=== PATIENT | female | born 1995 ===

== ENCOUNTER 2018-06-14 19:51 | Emergency (ER) | payer SELFPAY ==
[~2018-06-14] VITALS: Ht 152.4 cm; Wt 65.8 kg
[~2018-06-14 19:51] MED LIST: HYDR-1231 PO; SULF1TAB7 PO
[2018-06-14] MEDS ORDERED: NS IV 1000 ML 1,000 ML IV SCH ×2 (19:57→23:00)
[2018-06-14] MEDS ORDERED: ACETAMINOPHEN 500 MG TAB (TYLENOL) PO PRN (20:00)
--- OUTSIDE RECORDS SUMMARY | 2018-06-14 20:01 | XMS REPORT | Continuity of Care Document ---
Author Author [facility] Organization [facility] Address Unknown Phone Unavailable Allergies Active Description Code Type Severity Reaction Onset Reported/Identified Relationship to Patient Clinical Status Yes No Known Medication Allergies Drug N/A N/A Yes No Known Medication Allergies Drug N/A N/A Yes No Known Drug Allergies [id number] Drug Allergy Unknown N/A 06/09/2013 Medications Medication Packaging Start Date Stop Date Route Dosage Sig multivitamin, 2018 PO 0 / 1 multivitamin, 2018 PO Plus Iron oral tablet influenza virus vaccine, inactivated 04/27/2018 04/27/2018 IM Flucelvax PF Quadrivalent metoclopramide 06/01/2018 PO 10 mg / 1 tab Problems Date Dx Coded Attending Type Code Diagnosis Diagnosed By 01/03/2013 DEVEN MILAN, LIZ A V04.0 POLIO (IPV) DX 01/03/2013 DEVEN MILAN, LIZ A V05.3 HEP B (PED/ADOL 3 DOSE) DX 01/03/2013 DEVEN MILAN, LIZ A V06.1 TDAP DX 01/03/2013 DEVEN MILAN, LIZ A V06.8 PROQUAD (MMR/VARICELLA) DX 01/03/2013 DEVEN MILAN, LIZ A V04.0 POLIO (IPV) DX 01/03/2013 DEVEN MILAN, LIZ A V05.3 HEP B (PED/ADOL 3 DOSE) DX 01/03/2013 DEVEN MILAN, LIZ A V06.1 TDAP DX 01/03/2013 DEVEN MILAN, LIZ A V06.8 PROQUAD (MMR/VARICELLA) DX 01/03/2013 DEVEN MILNA, LIZ A V04.0 POLIO (IPV) DX 01/03/2013 DEVEN MILAN, LIZ A V05.3 HEP B (PED/ADOL 3 DOSE) DX 01/03/2013 ALVARADOE CENTRAL [facility] TECHNICIAN, LIZ A V06.1 TDAP DX 01/03/2013 ALVARADOE CENTRAL LAB TECHNICIAN, LIZ A V06.8 PROQUAD (MMR/VARICELLA) DX 01/03/2013 MARYOTTE CENTRAL LAB TECHNICIAN, LIZ A V04.0 POLIO (IPV) DX 01/03/2013 ALVARADOE CENTRAL LAB TECHNICIAN, LIZ A V05.3 HEP B (PED/ADOL 3 DOSE) DX 01/03/2013 MARYOTTE CENTRAL LAB TECHNICIAN, LIZ A V06.1 TDAP DX 01/03/2013 ALVARADOE CENTRAL LAB TECHNICIAN, LIZ A V06.8 PROQUAD (MMR/VARICELLA) DX 06/09/2013 MARTÍNEZ OLIVA, KASSANDRA Sampson Ot 599.0 URIN TRACT INFECTION NOS 06/09/2013 MARTÍNEZ OLIVA, KASSANDRA Sampson Ot 789.09 ABDOMINAL PAIN, OTHER SPECIFIED SITE 07/03/2013 ERMIAS OLIVA, KISHAN Gera Ot 789.04 ABDOMINAL PAIN, LEFT LOWER QUADRANT 11/07/2013 ALVARADOE CENTR[facility] TECHNICIAN, LIZ A V70.3 SPORTS PHYSICAL 11/07/2013 MARYOTTE CENTRAL LAB TECHNICIAN, LIZ A V70.3 SPORTS PHYSICAL 12/19/2013 MARYOTTE CENTRAL LAB TECHNICIAN, LIZ A 381.81 EUSTACHIAN TUBE DYSFUNCTION 12/19/2013 ALVARADOE CENTRAL LAB TECHNICIAN, LIZ A 786.2 COUGH 04/27/2018 Francine Ro Final Z11.3 Encounter for screening for infections with a predominantly 04/27/2018 Francine Ro Final Z34.91 Encounter for supervision of normal , unspecified, 06/05/2018 Fei Ballesteros Final F32.9 Major depressive disorder, single episode, unspecified 06/05/2018 Fei Ballesteros Final N13.2 Hydronephrosis with renal and ureteral calculous obstruction 06/05/2018 Fei Ballesteros Final N20.1 Calculus of ureter 06/05/2018 Fei Ballesteros Final O26.832 related renal disease, second trimester 06/05/2018 Fei Ballesteros Final O99.341 Other mental disorders complicating , first trimest 06/05/2018 Fei Ballesteros Final Z3A.13 13 weeks gestation of 06/12/2018 Fei Ballesteros Final N13.6 Pyonephrosis 06/12/2018 Fei Ballesteros Final N20.1 Calculus of ureter 06/12/2018 Fei Ballesteros Final O26.831 related renal disease, first trimester Procedures Code Description [place] [address] VISUAL ACUITY SCREEN 11/07/2013 80197 THERAPUTIC INJ SQ/IM 12/19/2013 J1040 DEPO MEDROL 80 MG INJ 12/19/2013 57756 Cystourethroscopy, with insertion of ind CLEMENTE TAYLOR 06/05/2018 68117 Cystourethroscopy, with ureteroscopy and CLEMENTE TAYLOR 06/12/2018 Results Test Result Range hCG,Beta Subunit,Qual,Serum - 12/26/15 16:44 hCG,Beta Subunit,Qual,Serum Negative mIU/mL Negative <6 Encounters ACCT No. Visit Date/Time Discharge Status Pt. Type Provider Facility Loc./Unit Complaint [id number] 07/03/2013 01:35:00 07/03/2013 02:32:00 DIS Emergency ERMIAS OLIVA, KISHAN Boss [facility] ER ABD PAIN [id number] 06/09/2013 10:43:00 06/09/2013 12:18:00 DIS Emergency MARTÍNEZ OLIVA, KASSANDRA Sampson [facility] ER ABDOMINAL PAIN [id number] 06/09/2018 08:38:10 06/09/2018 23:59:59 DIS Outpatient Fei Ballester[facility] recheck per Dr Ballesteros Told to come at 8:30 and may need to wait [id number] 06/05/2018 16:50:00 06/05/2018 23:59:59 DIS Outpatient [facility] [id number] 06/01/2018 12:44:47 06/01/2018 23:59:59 DIS Outpatient Francine Ro [facility] ob check [id number] 04/28/2018 00:00:00 04/28/2018 23:59:59 DIS Outpatient Scanned Documents [id number] 04/27/2018 08:58:04 04/27/2018 23:59:59 DIS Outpatient Francine Ro [facility] BAKER [id number] 06/14/2018 14:56:00 ACT Outpatient Rene [facility] [id number] 06/14/2018 09:14:00 ACT Outpatient [facility] [id number] 06/14/2018 08:45:00 ACT Outpatient [facility] [id number] 12/19/2013 14:06:00 12/19/2013 23:59:59 CLS Outpatient DEVEN ALEGREFransisco LIZ A [id number] 11/07/2013 11:33:00 11/07/2013 23:59:59 CLS Outpatient DEVEN ALEGREFransisco LIZ A [id number] 07/25/2013 11:24:00 07/25/2013 23:59:59 CLS Outpatient DEVEN ALEGRELIZ Moody [id number] 01/03/2013 13:21:00 01/03/2013 23:59:59 CLS Outpatient DEVEN ALEGREFransisco LIZ A [id number] 12/27/2015 08:07:00 Document Registration [id number] 06/12/2018 13:11:00 06/12/2018 23:59:00 DIS Outpatient [facility], [facility] JACKIE CYSTO W/HOLMIUM LSAER LT [id number] 06/05/2018 09:54:00 06/05/2018 23:59:00 DIS Outpatient [facility], [facility] JACKIE STONE [id number] 04/27/2018 15:59:00 04/27/2018 23:59:00 DIS Outpatient Francine Ro [facility] [id number] 06/14/2018 11:28:00 ACT Outpatient keren [facility] LAB LAB WORK
--- OUTSIDE RECORDS SUMMARY | 2018-06-14 20:01 | XMS REPORT ---
Author Author Jose Roberto Gaines Organization [facility] Address [address] [place] [address] [address] [place] [address] Care Team Providers Care Marker Delivery Name Role Phone Jose Roberto Gaines Unavailable PROBLEMS Type Condition ICD9-CM Code [id number] Code Onset Dates Condition Status SNOMED Code Problem Constipation, unspecified constipation type K59.00 Active [id number] ALLERGIES No Known Allergies ENCOUNTERS Encounter Location Date Diagnosis [address], [address] [id number] [place], [place] [id number] Feb, [address], [address] [id number] [place], [place] [id number] Feb, Constipation, unspecified constipation type K59.00 IMMUNIZATIONS No Known Immunizations SOCIAL HISTORY Never Assessed REASON FOR VISIT STOMACH PAIN x 2 WEEKS, ABNORMAL STOOL PLAN OF CARE Activity Details Follow Up prn Reason: VITAL SIGNS Temperature 98.2 degrees Fahrenheit 2018-02-20 Heart Rate 76 /min 2018-02-20 Height 63 in 2018-02-20 Weight 150.8 lbs 2018-02-20 BMI 26.71 kg/m2 2018-02-20 Respiratory Rate 14 /min 2018-02-20 Oximetry 95 % 2018-02-20 Blood pressure systolic 106 mm Hg 2018-02-20 Blood pressure diastolic 72 mm Hg 2018-02-20 MEDICATIONS Unknown Medications RESULTS No Results PROCEDURES No Known procedures INSTRUCTIONS MEDICATIONS ADMINISTERED No Known Medications MEDICAL (GENERAL) HISTORY Type Description Date Surgical History APPENDECTOMY Surgical History TONSILLECTOMY
--- NOTE | 2018-06-14 20:15 | ED General ---
General Stated Complaint: 15 WEEKS PREG,FEVER Source of Information: Patient Exam Limitations: No Limitations History of Present Illness Date Seen by Provider: Jun 14, 2018 Time Seen by Provider: 19:54 Initial Comments Here with report of left flank pain, fever 204, tachycardia and concerns of UTI with pyelonephritis from the clinic. She had lithotripsy recently for kidney stones on the left. Case is complicated by the fact that she is 15 weeks but family does not know when she does not want them to know. She was seen at [facility] and had initial evaluation done. Influenza screen is negative. They did initiate IV and give 1 L of fluid which dropped her heart rate from 160s to 120s. She did take Tylenol 500 mg at 1800. Fever apparently was read deducing but now has increased again to 101. Her rate has increased to 140s. Does have some cough and feels a little short of breath but not dyspneic. She is not wheezing. Denies nausea or vomiting. Has not had bowel movement for 3 days. Timing/Duration: 24 Hours Severity: Moderate Associated Systoms: No Chest Pain; Cough, Fever/Chills; No Nausea/Vomiting; Shortness of Air, Weakness Allergies and Home Medications Allergies Coded Allergies: No Known Drug Allergies (Unverified , 06/09/13) Home Medications Hydrocodone Bit/Acetaminophen 1 Tab Tablet, 1-2 TAB PO Q6H PRN for PAIN Prescribed by: KISHAN MONSON on 07/03/13 0224 Patient Home Medication List Home Medication List Reviewed: Yes Review of Systems Review of Systems Constitutional: see HPI, chills, fever, weakness EENTM: nose congestion; No throat pain Respiratory: cough, short of breath Cardiovascular: No chest pain, No edema; palpitations Gastrointestinal: abdominal pain; No nausea, No vomiting Genitourinary: No dysuria; pain : Yes Musculoskeletal: back pain; No muscle pain Skin: no symptoms reported Psychiatric/Neurological: No Symptoms Reported All Other Systems Reviewed Negative Unless Noted: Yes Past Yefibjo-Hmbjar-Bqvemz Hx Past Med/Social Hx: Reviewed Nursing Past Med/Soc Hx Patient Social History Alcohol Use: Denies Use Recreational Drug Use: No Smoking Status: Never a Smoker Recent Foreign Travel: No Contact w/Someone Who Travel: No Seasonal Allergies Seasonal Allergies: No (that she had a surgeries) Past Medical History Surgeries: Yes (lithotripsy) Appendectomy, Tonsillectomy Respiratory: No Cardiac: No Neurological: No : Yes Last Menstrual Period: Feb 27, 2018 Reproductive Disorders: No Sexually Transmitted Disease: No Gastrointestinal: No Musculoskeletal: No Endocrine: No Cancer: No Psychosocial: No Family Medical History Reviewed Nursing Family Hx Physical Exam-Suspected Sepsis Physical Exam Vital Signs Vital Signs - First Documented 06/14/18 06/15/18 20:00 00:17 Temp 101.0 Pulse 144 Resp 22 B/P (MAP) 111/67 (82) Pulse Ox 100 O2 Delivery Room Air Capillary Refill : Height, Weight, BMI Height: 5'5" Weight: 130lbs. oz. 58.845633rh; 21.63 BMI Method:Stated General Appearance: WD/WN, Mild Distress HEENT: PERRL/EOMI, Pharyngeal Erythema, Other (bilateral nasal congestion) Neck: Non Tender, Supple Respiratory: Lungs Clear, Normal Breath Sounds Cardiovascular: No Murmur, Tachycardia Gastrointestinal: Soft, Tenderness (left lateral and flank) Back: No Vertebral Tenderness, CVA Tenderness (L); No CVA Tenderness (R) Extremity: Normal Range of Motion, Non Tender, No Calf Tenderness Neurologic/Psychiatric: Alert, Oriented x3, No Motor/Sensory Deficits Skin: normal color, warm/dry Focused Exam Lactate Level 06/14/18 20:05: Lactic Acid Level 2.09*H 06/14/18 22:25: Lactic Acid Level 1.06 Lactic Acid Level Progress/Results/Core Measures Suspected Sepsis SIRS Temperature: Pulse: Respiratory Rate: Laboratory Tests 06/14/18 20:05: White Blood Count 22.5H Blood Pressure / Mean: 06/14/18 20:05: Lactic Acid Level 2.09*H 06/14/18 22:25: Lactic Acid Level 1.06 Laboratory Tests 06/14/18 20:05: Creatinine 0.76, INR Comment 1.1, Platelet Count 252, Total Bilirubin 1.3H Results/Orders Lab Results Laboratory Tests Test 06/14/18 20:05 06/14/18 20:15 06/14/18 22:25 Range/Units White Blood Count 22.5 H 4.3-11.0 10^3/uL Red Blood Count 4.08 L 4.35-5.85 10^6/uL Hemoglobin 12.1 11.5-16.0 G/DL Hematocrit 34 L 35-52 % Mean Corpuscular Volume 82 80-99 FL Mean Corpuscular Hemoglobin 30 25-34 PG Mean Corpuscular Hemoglobin Concent 36 32-36 G/DL Red Cell Distribution Width 12.6 10.0-14.5 % Platelet Count 252 130-400 10^3/uL Mean Platelet Volume 10.5 H 7.4-10.4 FL Neutrophils (%) (Auto) 95 H 42-75 % Lymphocytes (%) (Auto) 3 L 12-44 % Monocytes (%) (Auto) 2 0-12 % Eosinophils (%) (Auto) 0 0-10 % Basophils (%) (Auto) 0 0-10 % Neutrophils # (Auto) 21.3 H 1.8-7.8 X 10^3 Lymphocytes # (Auto) 0.8 L 1.0-4.0 X 10^3 Monocytes # (Auto) 0.4 0.0-1.0 X 10^3 Eosinophils # (Auto) 0.0 0.0-0.3 10^3/uL Basophils # (Auto) 0.0 0.0-0.1 10^3/uL Neutrophils % (Manual) 93 % Lymphocytes % (Manual) 2 % Monocytes % (Manual) 1 % Eosinophils % (Manual) 0 % Basophils % (Manual) 0 % Band Neutrophils 4 % Blood Morphology Comment NORMAL Prothrombin Time 14.2 12.2-14.7 SEC INR Comment 1.1 0.8-1.4 Activated Partial Thromboplast Time 26 24-35 SEC Sodium Level 133 L 135-145 MMOL/L Potassium Level 3.9 3.6-5.0 MMOL/L Chloride Level 104 98-107 MMOL/L Carbon Dioxide Level 18 L 21-32 MMOL/L Anion Gap 11 5-14 MMOL/L Blood Urea Nitrogen 5 L 7-18 MG/DL Creatinine 0.76 0.60-1.30 MG/DL Estimat Glomerular Filtration Rate > 60 BUN/Creatinine Ratio 7 Glucose Level 97 70-105 MG/DL Lactic Acid Level 2.09 *H 1.06 0.50-2.00 MMOL/L Calcium Level 9.1 8.5-10.1 MG/DL Corrected Calcium 9.4 8.5-10.1 MG/DL Total Bilirubin 1.3 H 0.1-1.0 MG/DL Aspartate Amino Transf (AST/SGOT) 32 5-34 U/L Alanine Aminotransferase (ALT/SGPT) 49 0-55 U/L Alkaline Phosphatase 76 40-136 U/L Total Protein 6.9 6.4-8.2 GM/DL Albumin 3.6 3.2-4.5 GM/DL Urine Color YELLOW Urine Clarity CLEAR Urine pH 8 5-9 Urine Specific [place] 1.010 L 1.016-1.022 Urine Protein NEGATIVE NEGATIVE Urine Glucose (UA) NEGATIVE NEGATIVE Urine Ketones NEGATIVE NEGATIVE Urine Nitrite NEGATIVE NEGATIVE Urine Bilirubin NEGATIVE NEGATIVE Urine Urobilinogen NORMAL NORMAL MG/DL Urine Leukocyte Esterase 3+ H NEGATIVE Urine RBC (Auto) 2+ H NEGATIVE Urine RBC RARE /HPF Urine WBC 10-25 H /HPF Urine Squamous Epithelial Cells 10-25 H /HPF Urine Crystals NONE /LPF Urine Bacteria FEW H /HPF Urine Casts NONE /LPF Urine Mucus NEGATIVE /LPF Urine Culture Indicated NO Micro Results Microbiology 06/14/18 Blood Culture - Preliminary, Resulted No growth 06/14/18 Blood Culture - Preliminary, Resulted No growth 06/14/18 Urine Culture - Preliminary, Resulted Enterococcus faecalis My Orders Orders - KASSANDRA SOLIZ MD Cbc With Automated Diff (06/14/18 19:57) Comprehensive Metabolic Panel (06/14/18 19:57) Blood Culture (06/14/18 19:57) Urinalysis (06/14/18 19:57) Urine Culture (06/14/18 19:57) Protime With Inr (06/14/18 19:57) Partial Thromboplastin Time (06/14/18 19:57) Chest 1 View, Ap/Pa Only (06/14/18 19:57) Acetaminophen Tablet (Tylenol Tablet) (06/14/18 20:00) Vital Signs Adult Sepsis Patie Q15M (06/14/18 19:57) O2 (06/14/18 19:57) Remove Rings In Anticipation O (06/14/18 19:57) Lactic Acid Analyzer (06/14/18 19:57) Ns Iv 1000 Ml (Sodium Chloride 0.9%) (06/14/18 19:57) Manual Differential (06/14/18 20:05) Ceftriaxone For Iv Use (Rocephin For I (06/14/18 21:00) Ns Iv 1000 Ml (Sodium Chloride 0.9%) (06/14/18 20:47) Ibuprofen Tablet (Motrin Tablet) (06/14/18 21:29) Ns Iv 1000 Ml (Sodium Chloride 0.9%) (06/14/18 23:00) Lactated Ringers (Lr 1000 Ml Iv Solution (06/14/18 23:23) Ns (Ivpb) (Sodium Chloride 0.9%) (06/14/18 23:44) Norepinephrine (Levophed) (06/14/18 23:44) Chest 1 View, Ap/Pa Only (06/15/18 00:05) Medications Given in ED Vital Signs/I&O Capillary Refill : Progress Note : Progress Note Seen and evaluated. Sepsis workup initiated. Concerns for pyelonephritis after lithotripsy. Chest x-ray ordered given patient's shortness of breath. Normal saline 1 L bolus ordered and this will be her second liter of normal saline as she had one liter at the clinic. Blood cultures and lactic acid ordered. Acetaminophen 500 mg by mouth given. Monitor patient. 2030: Bedside ultrasound shows intrauterine with fetus of approximately 15-1/7 by femur length and heart rate 175-180. 2047: Repeat normal saline 1 L bolus for continued blood pressure that is near her below 90 systolic. This will exceeded 30 mL/kg bolus for sepsis. Lactic acid is elevated greater than 2. Rocephin 1 g IV ordered. 2126: Temperature is increasing currently. I did discuss the case with our OB on-call. She is right at second trimester now. Given her persistent fever , we will initiate ibuprofen 600 mg by mouth 1. Blood pressure 89-91 systolic with map less than 65. Patient will require central line and advanced care. I did discuss the case with Dr. Coto. Due to the complexity of the case including neurological issues, sepsis, OB patient and probable urinary tract infection requiring manager highway and urology, patient will need to be transferred. Close the Center capable of managing this type of patient would be [facility]. 2157: I have made contact with transfer line and impending call back from on- call accepting physician. Patient will need to go by EMS. Case is also comforted by the fact that patient is and her family does not know. At this point she has not told them. I have talked with her about my concerns and the need for transfer as well as the need to probably let her family know about what is going on so they understand the reason for transfer. She will make a decision on that but at this point the family still does not know. CT scan considered but I will discuss this with the on-call accepting physician. 2320: Patient will be transferred. Blood pressure 90s systolic or less in the central line. Total critical patients in the emergency department at this time. I have asked Dr. Shi to come in for central line placement due to the need for pressors. He will come in. I did speak with the transfer line and Dr. Nova has accepted the patient in transfer. She will go by helicopter due to critical condition, need for pressors and . 2345: Dr. Shi placing central line and helicopter in route as patient has been accepted to . Anticipate initiating Levophed. 0005: Pulse chest x-ray ordered and completed. Levophed initiated. Helicopter crew here for transport. Report given. They will continue Levophed in route. Diagnostic Imaging Diagonstic Imaging: Xray Plain Films/CT/US/NM/MRI: chest Comments [facility] [place] NAME: MARIBELL MARTINEZ [facility] REC#: [id number] PT STATUS: REG ER : 1995 PHYSICIAN: KASSANDRA SOLIZ MD ADMIT DATE: 06/14/18/ER Draft Date of Exam:06/14/18 CHEST 1 VIEW, AP/PA ONLY INDICATION: Febrile. FINDINGS: Portable exam. The lungs are well-aerated. There are no acute infiltrates. Heart is not enlarged. No pulmonary edema. No pneumothorax or pleural effusion. No bony abnormalities. IMPRESSION: Normal portable chest Dictated on workstation # [id number] Dict: 06/14/182053 Trans: 06/14/182056 [facility] [id number] Interpreted by: LUIS WAGNER MD Electronically signed by: Diagonstic Imaging: Xray Plain Films/CT/US/NM/MRI: chest Comments NAME: MARIBELL MARTINEZ MED REC#: [id number] PT STATUS: DEP ER : 1995 PHYSICIAN: KASSANDRA SOLIZ MD ADMIT DATE: 06/14/18/ER Signed Date of Exam: 06/15/18 CHEST 1 VIEW, AP/PA ONLY INDICATION: Central venous catheter evaluation. FINDINGS: Portable upright AP view of the chest is obtained. Since study of one day earlier, there has been placement of left subclavian central venous catheter with tip projecting over the mid superior vena cava. There is no pneumothorax. No consolidation or significant pleural fluid is seen. IMPRESSION: No evidence of acute abnormality. Dictated by: Dictated on workstation # [id number] Dict: 06/15/18 0715 Trans: 06/15/18 1204 Interpreted by: DEON ISIDRO MD Electronically signed by: DEON ISIDRO MD 06/15/18 1204 Departure Impression Primary Impression: Qualified Codes: Z3A.15 - 15 weeks gestation of Additional Impressions: Sepsis Qualified Codes: A41.9 - Sepsis, unspecified organism Urinary tract infection Qualified Codes: N30.00 - Acute cystitis without hematuria Left sided abdominal pain Disposition: XF SHT-TRM HOSP Condition: Stable Transfer Time Spoke to Accepting Phy: 23:20 Transfer Time: 23:20 Transfer Facility: [place], [place], Dr. Nova accepting Method of Transfer: Air Departure-Patient Inst. Referrals: NO,LOCAL PHYSICIAN (PCP/Family) Primary Care Physician KASSANDRA SOLIZ MD Jun 14, 2018 20:15
[2018-06-14 20:25] LABS: BASOPHILS % (AUTO) 0 % (0-10); EOSINOPHILS % (AUTO) 0 % (0-10); HEMATOCRIT 34 % (35-52); HEMOGLOBIN 12.1 G/DL (11.5-16.0); LYMPHOCYTES # (AUTO) 0.8 X 10^3 (1.0-4.0); LYMPHOCYTES % (AUTO) 3 % (12-44); MEAN CORPUSCULAR HEMOGLOBIN 30 PG (25-34); MEAN CORPUSCULAR HGB CONC 36 G/DL (32-36); MEAN CORPUSCULAR VOLUME 82 FL (80-99); MEAN PLATELET VOLUME 10.5 FL (7.4-10.4); MONOCYTES # (AUTO) 0.4 X 10^3 (0.0-1.0); MONOCYTES % (AUTO) 2 % (0-12); NEUTROPHILS # (AUTO) 21.3 X 10^3 (1.8-7.8); NEUTROPHILS % (AUTO) 95 % (42-75); PLATELET COUNT 252 10^3/uL (130-400); RED CELL DISTRIBUTION WIDTH 12.6 % (10.0-14.5); WHITE BLOOD COUNT 22.5 10^3/uL (4.3-11.0)
[2018-06-14 20:28] LABS: BILIRUBIN,URINE NEGATIVE (NEGATIVE); CLARITY,URINE CLEAR; COLOR,URINE YELLOW; GLUCOSE, URINE (UA) NEGATIVE (NEGATIVE); KETONES,URINE NEGATIVE (NEGATIVE); LEUKOCYTE ESTERASE ,URINE 3+ (NEGATIVE); NITRITE,URINE NEGATIVE (NEGATIVE); PH,URINE 8 (5-9); PROTEIN,URINE NEGATIVE (NEGATIVE); UROBILINOGEN,URINE NORMAL (NORMAL)
[2018-06-14 20:32] LABS: INR 1.1 (0.8-1.4); PROTHROMBIN TIME PATIENT 14.2 SEC (12.2-14.7)
[2018-06-14 20:36] LABS: BACTERIA,URINE FEW /HPF; RBC,URINE RARE /HPF
[2018-06-14 20:39] LABS: ALANINE AMINOTRANSFERASE 49 U/L (0-55); ALBUMIN 3.6 GM/DL (3.2-4.5); ALKALINE PHOSPHATASE 76 U/L (40-136); BILIRUBIN,TOTAL 1.3 MG/DL (0.1-1.0); BUN/CREATININE RATIO 7; CALCIUM 9.1 MG/DL (8.5-10.1); CARBON DIOXIDE 18 MMOL/L (21-32); CHLORIDE 104 MMOL/L (98-107); CREATININE SERUM 0.76 MG/DL (0.60-1.30); GFR ESTIMATED > 60; GLUCOSE 97 MG/DL (70-105); POTASSIUM 3.9 MMOL/L (3.6-5.0); SODIUM 133 MMOL/L (135-145); TOTAL PROTEIN 6.9 GM/DL (6.4-8.2)
[2018-06-14] MEDS ORDERED: NS IV 1000 ML 1,000 ML IV STA (20:47)
--- NOTE | 2018-06-14 20:53 | NUR ---
US PER DR. SOLIZ AT BEDSIDE. MEASURING 15 WEEKS AND 1 DAY, FHT 180.
[2018-06-14 20:55] LABS: BAND NEUTROPHILS 4 %; BASOPHILS % (MANUAL) 0 %; EOSINOPHILS % (MANUAL) 0 %; LYMPHOCYTES % (MANUAL) 2 %; MONOCYTES % (MANUAL) 1 %; NEUTROPHILS % (MANUAL) 93 %; RBC MORPH NORMAL
--- NOTE | 2018-06-14 20:58 | Diagnostic Imaging Report ---
INDICATION: Febrile. FINDINGS: Portable exam. The lungs are well-aerated. There are no acute infiltrates. Heart is not enlarged. No pulmonary edema. No pneumothorax or pleural effusion. No bony abnormalities. IMPRESSION: Normal portable chest Dictated by: Dictated on workstation # [id number]
[2018-06-14] MEDS ORDERED: cefTRIAXone FOR IV USE 1,000 MG in WATER (STERILE) FOR INJECTION 10 ML IV ONE (21:00)
[2018-06-14] MEDS ORDERED: IBUPROFEN TABLET 200 MG TAB PO STA (21:29)
[2018-06-14] MEDS ORDERED: LACTATED RINGERS 1,000 ML IV ONE (23:23)
[2018-06-14] MEDS ORDERED: NS (IVPB) 250 ML ONE (23:44)
[2018-06-14] MEDS ORDERED: NOREPINEPHRINE 4 MG/4 ML (LEVOPHED) AMP IV ONE (23:44)
--- NOTE | 2018-06-14 23:45 | NUR ---
DR. ASTUDILLO HERE TO PLACE CENTRAL LINE FOR HYPOTENSION. SEE VITAL SIGN SHEETS FOR FUTHER BP DETAILS.
[2018-06-15 00:17] VITALS: BP 83/39
--- NOTE | 2018-06-15 02:44 | CONSULTATION REPORT ---
DATE OF SERVICE: 06/14/2018 HISTORY OF PRESENT ILLNESS: The patient is a 22-year-old female who presented with fever, chills as well as weakness. 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 She states that she developed fever, chills and then felt weak. She was found to have a urinary tract infection. She was also found to be hypotensive and tachycardic consistent with urosepsis. She will require IV fluid hydration as well as vasopressors. She is also 16 weeks' gestation and will require transfer to a high risk obstetric center. PAST MEDICAL HISTORY: Nephrolithiasis. PAST SURGICAL HISTORY: Appendectomy, tonsillectomy. ALLERGIES: No known drug allergies. MEDICATIONS: None. SOCIAL HISTORY: Negative smoke, negative alcohol. FAMILY HISTORY: Noncontributory. VITAL SIGNS: Relatively stable. Her systolic blood pressure ranges from the 60s to 80s, heart rate in the 120s to 130s. REVIEW OF SYSTEMS: Well-nourished female, who is awake and alert; however, feels weak and does answer all questions appropriately. She is not experiencing any shortness of breath or difficulty breathing. No chest pain, palpitations, diaphoresis. No nausea, vomiting. No diarrhea or constipation. Fever, chills as well as weakness for the past two days. No recent inadvertent weight loss. All other review of systems negative. PHYSICAL EXAMINATION: CHEST: Clear. Good breath sounds bilaterally. HEART: Regular, no murmurs. HEENT: No scleral icterus. NECK: No cervical lymphadenopathy. EXTREMITIES: No lower extremity edema, negative Homans sign. ABDOMEN: Soft, nontender, nondistended. SKIN: Slightly cool and clammy. ASSESSMENT AND PLAN: A 22-year-old female with urosepsis secondary to lithotripsy and cystoscopy and stone removal with urosepsis as well as a G1, P0 at 18 weeks' gestation. She will require IV hydration and antibiotics as well as the vasopressors and transferred to the high risk obstetrics center and she will require a central venous catheter, which we will place. Job ID: [id number] DocumentID: [id number] Dictated Date: 06/15/2018 00:12:39 Software Support Specialist Date: 06/15/2018 02:44:21 Dictated By: JEAN CLAUDE ASTUDILLO MD
--- NOTE | 2018-06-15 04:43 | OPERATIVE REPORT ---
DATE OF SERVICE: 06/14/2018 PREPROCEDURE DIAGNOSIS: Urosepsis. POST PROCEDURE DIAGNOSES: Urosepsis. PROCEDURE: Placement of left subclavian central venous catheter. SURGEON: Jean Claude Astudillo MD ANESTHESIA: Local. ESTIMATED BLOOD LOSS: Minimal. FINDINGS: Catheter tip at superior vena cava/right atrial junction. DISPOSITION: The patient tolerated the procedure well. INDICATIONS: The patient is a 22-year-old female in urosepsis. She underwent a lithotripsy as well as a cystoscopy and stone removal several days ago and afterwards that she did feel fever, chills and weakness, which have worsened over time. She was found to have a urinary tract infection and upon admission, was found to be hypotensive as well as tachycardic with a systolic blood pressure between 60s and 80s. She is also G1, P0, at 18 weeks' gestation and will require IV fluids, antibiotics as well as vasopressors and transferred to a high risk obstetric center. DESCRIPTION OF PROCEDURE: The neck and chest was prepped and draped in standard surgical fashion. A 1% lidocaine was used to anesthetize the skin and subcutaneous tissue in the left subclavian region. The left subclavian vein was then cannulated withdrawing the venous blood. The guidewire was then inserted without any resistance. The cannulating needle removed and a skin incision made using 11 blade and a venous dilator used to create a tract into the vein. A triple lumen central venous catheter was then placed over the guidewire using the Seldinger technique. Guidewire was removed and all three ports jonelle venous blood and saline pushed in without any resistance. The catheter then was sutured to the skin using 3-0 silk interrupted sutures. Catheter was then cleaned and covered with Op-Site. The patient tolerated the procedure well. A post-procedure chest x-ray did show adequate placement of the catheter as well as no pneumothorax. The catheter may be accessed and used at any time. Job ID: [id number] DocumentID: [id number] Dictated Date: 06/15/2018 00:15:45 Can Filling And Closing Machine Tender Date: 06/15/2018 04:42:45 Dictated By: JEAN CLAUDE ASTUDILLO MD
--- NOTE | 2018-06-15 07:23 | Diagnostic Imaging Report ---
INDICATION: Central venous catheter evaluation. FINDINGS: Portable upright AP view of the chest is obtained. Since study of one day earlier, there has been placement of left subclavian central venous catheter with tip projecting over the mid superior vena cava. There is no pneumothorax. No consolidation or significant pleural fluid is seen. IMPRESSION: No evidence of acute abnormality. Dictated by: Dictated on workstation # [id number]
== END 2018-06-15 00:17 | disposition short-term general hospital (02) ==
LOC: EDUNIT# 19:51 → ER 19:53
DX: O98.812 Other maternal infectious and parasitic diseases complicating pregnancy, second trimester (principal); A41.9 Sepsis, unspecified organism; O23.42 Unspecified infection of urinary tract in pregnancy, second trimester; Z87.412 Personal history of vulvar dysplasia; Z90.49 Acquired absence of other specified parts of digestive tract; Z90.89 Acquired absence of other organs; Z3A.15 15 weeks gestation of pregnancy
CPT/HCPCS: 36415; 71045; 80053; 81000; 83605; 85007; 85027; 85610; 85730; 87040; 87077; 87088; 87186

== ENCOUNTER 2018-06-26 19:02 | Emergency (ER) | payer BC, OTHER ==
[~2018-06-26] VITALS: Ht 152.4 cm; Wt 63.5 kg
--- OUTSIDE RECORDS SUMMARY | 2018-06-26 19:08 | XMS REPORT | Continuity of Care Document ---
Author Organization Unknown Address Unknown Allergies Active Description Code Type Severity Reaction Onset Reported/Identified Relationship to Patient Clinical Status Yes No Known Medication Allergies Drug N/A N/A Yes No Known Medication Allergies Drug N/A N/A Yes No Known Drug Allergies [id number] Drug Allergy Unknown N/A 06/09/2013 Medications Medication Packaging Start Date Stop Date Route Dosage Sig multivitamin, 2018 PO 0 / 1 multivitamin, 2018 PO Plus Iron oral tablet influenza virus vaccine, inactivated 04/27/2018 04/27/2018 IM Flucelvax PF Quadrivalent metoclopramide 06/01/2018 PO 10 mg / 1 tab Problems Date Dx Coded Attending Type Code Diagnosis Diagnosed By 01/03/2013 DEVEN MILAN LIZ A V04.0 POLIO (IPV) DX 01/03/2013 [...] HEP B (PED/ADOL 3 DOSE) DX 01/03/2013 [employer]PER[employer], LIZ A V06.1 TDAP DX 01/03/2013 DEVEN MILAN, LIZ A V06.8 PROQUAD (MMR/VARICELLA) DX 01/03/2013 DEVEN MILAN, LIZ A V04.0 POLIO (IPV) DX 01/03/2013 DEVEN MILAN, LIZ A V05.3 HEP B (PED/ADOL 3 DOSE) DX 01/03/2013 DEVEN ALEGREN, LIZ A V06.1 TDAP DX 01/03/2013 DEVEN ALEGREN, LIZ A V06.8 PROQUAD (MMR/VARICELLA) DX 06/09/2013 MARTÍNEZ OLIVA, KASSANDRA Sampson Ot 599.0 URIN TRACT INFECTION NOS 06/09/2013 MARTÍNEZ OLIVA, KASSANDRA Sampson Ot 789.09 ABDOMINAL PAIN, OTHER SPECIFIED SITE 07/03/2013 ERMIAS OLIVA, KISHAN Boss Ot 789.04 ABDOMINAL PAIN, LEFT LOWER QUADRANT 11/07/2013 DEVEN ALEGREN, LIZ A V70.3 SPORTS PHYSICAL 11/07/2013 DEVEN [employer] SUPER[employer], LIZ A V70.3 SPORTS PHYSICAL 12/19/2013 DEVEN ALEGREN, LIZ A 381.81 EUSTACHIAN TUBE DYSFUNCTION 12/19/2013 DEVEN MILAN, LIZ A 786.2 COUGH 04/27/2018 Francine Ro [...] 06/12/2018 Fei Ballesteros Final N13.6 Pyonephrosis 06/12/2018 Heeb, Fei Final N20.1 Calculus of ureter 06/12/2018 Heeb, Fei Final O26.831 related renal disease, first trimester 06/14/2018 Heeb, Fei Final N20.9 Urinary calculus, unspecified 06/15/2018 KASSANDRA SOLIZ MD, Ot A41.9 SEPSIS, UNSPECIFIED ORGANISM 06/15/2018 KASSANDRA SOLIZ MD Ot O23.42 UNSP INFCT OF URINARY TRACT IN 06/15/2018 KASSANDRA SOLIZ MD Ot O26.892 OT RELATED CONDITIONS, SECOND 06/15/2018 KASSANDRA SOLIZ MD Ot O98.812 OT MATERNAL INFEC/PARASTC DISEASES COMP 06/15/2018 KASSANDRA SOLIZ MD Ot Z3A.15 15 WEEKS GESTATION OF 06/15/2018 KASSANDRA SOLIZ MD Ot 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 06/15/2018 KASSANDRA SOLIZ MD Ot Z90.49 ACQUIRED ABSENCE OF OTHER SPECIFIED PART 06/15/2018 KASSANDRA SOLIZ MD Ot Z90.89 ACQUIRED ABSENCE OF OTHER ORGANS 06/17/2018 KASSANDRA SOLIZ MD, Ot A41.9 SEPSIS, UNSPECIFIED ORGANISM 06/17/2018 KASSANDRA SOLIZ MD Ot O23.42 UNSP INFCT OF URINARY TRACT IN 06/17/2018 KASSANDRA SOLIZ MD Ot O26.892 OT RELATED CONDITIONS, SECOND 06/17/2018 KASSANDRA SOLIZ MD Ot O98.812 OT MATERNAL INFEC/PARASTC DISEASES COMP 06/17/2018 KASSANDRA SOLIZ MD Ot Z3A.15 15 WEEKS GESTATION OF 06/17/2018 KASSANDRA SOLIZ MD Ot 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 06/17/2018 KASSANDRA SOLIZ MD Ot Z90.49 ACQUIRED ABSENCE OF OTHER SPECIFIED PART 06/17/2018 KASSANDRA SOLIZ MD Ot Z90.89 ACQUIRED ABSENCE OF OTHER ORGANS 06/20/2018 KASSANDRA SOLIZ MD, Ot A41.9 SEPSIS, UNSPECIFIED ORGANISM 06/20/2018 KASSANDRA SOLIZ MD Ot O23.42 UNSP INFCT OF URINARY TRACT IN 06/20/2018 KASSANDRA SOLIZ MD Ot O26.892 OT RELATED CONDITIONS, SECOND 06/20/2018 KASSANDRA SOLIZ MD Ot O98.812 OT MATERNAL INFEC/PARASTC DISEASES COMP 06/20/2018 KASSANDRA SOLIZ MD Ot Z3A.15 15 WEEKS GESTATION OF 06/20/2018 KASSANDRA SOLIZ MD Ot 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 06/20/2018 KASSANDRA SOLIZ MD Ot Z90.49 ACQUIRED ABSENCE OF OTHER SPECIFIED PART 06/20/2018 KASSANDRA SOLIZ MD Ot Z90.89 ACQUIRED ABSENCE OF OTHER ORGANS 06/22/2018 KASSANDRA SOLIZ MD, Ot A41.9 SEPSIS, UNSPECIFIED ORGANISM 06/22/2018 KASSANDRA SOLIZ MD Ot O23.42 UNSP INFCT OF URINARY TRACT IN 06/22/2018 KASSANDRA SOLIZ MD Ot O26.892 OT RELATED CONDITIONS, SECOND 06/22/2018 KASSANDRA SOLIZ MD Ot O98.812 OT MATERNAL INFEC/PARASTC DISEASES COMP 06/22/2018 KASSANDRA SOLIZ MD, Ot Z3A.15 15 WEEKS GESTATION OF 06/22/2018 KASSANDRA SOLIZ MD, Ot 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 06/22/2018 KASSANDRA SOLIZ MD Ot Z90.49 ACQUIRED ABSENCE OF OTHER SPECIFIED PART 06/22/2018 KASSANDRA SOLIZ MD, Ot Z90.89 ACQUIRED ABSENCE OF OTHER ORGANS Procedures Code Description [place] [address] VISUAL ACUITY SCREEN 11/07/2013 57293 THERAPUTIC INJ SQ/IM 12/19/2013 J1040 DEPO MEDROL 80 MG INJ 12/19/2013 62391 Cystourethroscopy, with insertion of ind CLEEMNTE TAYLOR 06/05/2018 78414 Cystourethroscopy, with ureteroscopy and CLEMENTE TAYLOR 06/12/2018 Results Test Result Range hCG,Beta Subunit,Qual,Serum - 12/26/15 16:44 hCG,Beta Subunit,Qual,Serum Negative mIU/mL Negative <6 Complete blood count (CBC) with automated white blood cell (WBC) differential - 06/14/18 20:05 Blood leukocytes automated count (number/volume) 22.5 10*3/uL 4.3-11.0 Blood erythrocytes automated count (number/volume) 4.08 10*6/uL 4.35-5.85 Venous blood hemoglobin measurement (mass/volume) 12.1 g/dL 11.5-16.0 Blood hematocrit (volume fraction) 34 % 35-52 Automated erythrocyte mean corpuscular volume 82 [foz_us] 80-99 Automated erythrocyte mean corpuscular hemoglobin (mass per erythrocyte) 30 pg 25-34 Automated erythrocyte mean corpuscular hemoglobin concentration measurement ( mass/volume) 36 g/dL 32-36 Automated erythrocyte distribution width ratio 12.6 % 10.0-14.5 Automated blood platelet count (count/volume) 252 10*3/uL 130-400 Automated blood platelet mean volume measurement 10.5 [foz_us] 7.4-10.4 Automated blood neutrophils/100 leukocytes 95 % 42-75 Automated blood lymphocytes/100 leukocytes 3 % 12-44 Blood monocytes/100 leukocytes 2 % 0-12 Automated blood eosinophils/100 leukocytes 0 % 0-10 Automated blood basophils/100 leukocytes 0 % 0-10 Blood neutrophils automated count (number/volume) 21.3 10*3 1.8-7.8 Blood lymphocytes automated count (number/volume) 0.8 10*3 1.0-4.0 Blood monocytes automated count (number/volume) 0.4 10*3 0.0-1.0 Automated eosinophil count 0.0 10*3/uL 0.0-0.3 Automated blood basophil count (count/volume) 0.0 10*3/uL 0.0-0.1 PT panel in platelet poor plasma by coagulation assay - 06/14/18 20:05 Prothrombin time (PT) in platelet poor plasma by coagulation assay 14.2 s 12.2-14.7 INR in platelet poor plasma or blood by coagulation assay 1.1 0.8-1.4 Activated partial thromboplastin time (aPTT) in platelet poor plasma bycoagulation assay - 06/14/18 20:05 Activated partial thromboplastin time (aPTT) in platelet poor plasma bycoagulation assay 26 s 24-35 Blood lactic acid measurement (moles/volume) - 06/14/18 20:05 Blood lactic acid measurement (moles/volume) 2.09 mmol/L 0.50-2.00 Comprehensive metabolic panel - 06/14/18 20:05 Serum or plasma sodium measurement (moles/volume) 133 mmol/L 135-145 Serum or plasma potassium measurement (moles/volume) 3.9 mmol/L 3.6-5.0 Serum or plasma chloride measurement (moles/volume) 104 mmol/L 98-107 Carbon dioxide 18 mmol/L 21-32 Serum or plasma anion gap determination (moles/volume) 11 mmol/L 5-14 Serum or plasma urea nitrogen measurement (mass/volume) 5 mg/dL 7-18 Serum or plasma creatinine measurement (mass/volume) 0.76 mg/dL 0.60-1.30 Serum or plasma urea nitrogen/creatinine mass ratio 7 NRG Serum or plasma creatinine measurement with calculation of estimated glomerular filtration rate > NRG Serum or plasma glucose measurement (mass/volume) 97 mg/dL 70-105 Serum or plasma calcium measurement (mass/volume) 9.1 mg/dL 8.5-10.1 Serum or plasma total bilirubin measurement (mass/volume) 1.3 mg/dL 0.1-1.0 Serum or plasma alkaline phosphatase measurement (enzymatic activity/volume) 76 U/L 40-136 Serum or plasma aspartate aminotransferase measurement (enzymatic activity/ volume) 32 U/L 5-34 Serum or plasma alanine aminotransferase measurement (enzymatic activity/volume ) 49 U/L 0-55 Serum or plasma protein measurement (mass/volume) 6.9 g/dL 6.4-8.2 Serum or plasma albumin measurement (mass/volume) 3.6 g/dL 3.2-4.5 CALCIUM CORRECTED 9.4 mg/dL 8.5-10.1 Blood manual differential performed detection - 06/14/18 20:05 Blood monocytes/100 leukocytes 1 % NRG Manual blood segmented neutrophils/100 leukocytes 93 % NRG Blood band neutrophils/100 leukocytes 4 % NRG Manual blood lymphocytes/100 leukocytes 2 % NRG Manual eosinophils/100 leukocytes in nose 0 % NRG Manual blood basophils/100 leukocytes 0 % NRG Blood erythrocyte morphology finding identification NORMAL NRG Bacterial blood culture - 06/14/18 20:05 Bacterial blood culture NG NRG Complete urinalysis with reflex to culture - 06/14/18 20:15 Urine color determination YELLOW NRG Urine clarity determination CLEAR NRG Urine pH measurement by test strip 8 5-9 Specific gravity of urine by test strip 1.010 1.016- 1.022 Urine protein assay by test strip, semi-quantitative NEGATIVE NEGATIVE Urine glucose detection by automated test strip NEGATIVE NEGATIVE Erythrocytes detection in urine sediment by light microscopy 2+ NEGATIVE Urine ketones detection by automated test strip NEGATIVE NEGATIVE Urine nitrite detection by test strip NEGATIVE NEGATIVE Urine total bilirubin detection by test strip NEGATIVE NEGATIVE Urine urobilinogen measurement by automated test strip (mass/volume) NORMAL NORMAL Urine leukocyte esterase detection by dipstick 3+ NEGATIVE Automated urine sediment erythrocyte count by microscopy (number/high power field) RARE NRG Automated urine sediment leukocyte count by microscopy (number/high power field ) [HPF] NRG Bacteria detection in urine sediment by light microscopy FEW NRG Squamous epithelial cells detection in urine sediment by light microscopy 10-25 NRG Crystals detection in urine sediment by light microscopy NONE NRG Casts detection in urine sediment by light microscopy NONE NRG Mucus detection in urine sediment by light microscopy NEGATIVE NRG Complete urinalysis with reflex to culture NO NRG Bacterial urine culture - 06/14/18 20:15 Bacterial urine culture [id number] NRG COLONY COUNT >100,000/ML NRG FTX;REPORTABLE SENSITIVITY REPORTED 06/17/18 09:05 NRG FREE TEXT ENTRY 2 ID REPORTED 06/15/18 16:05 NRG RML Sensitivity Panel - 06/14/18 20:15 Vancomycin susceptibility test by minimum inhibitory concentration 1 NRG Levofloxacin susceptibility test by minimum inhibitory concentration <= NRG Ampicillin susceptibility test by minimum inhibitory concentration 2 NRG Nitrofurantoin susceptibility test by minimum inhibitory concentration <= NRG Linezolid susceptibility test by minimum inhibitory concentration 2 NRG Daptomycin susc NAEEM 4 NRG Bacterial blood culture - 06/14/18 20:53 Bacterial blood culture NG NRG Serum or plasma lactate measurement (moles/volume) - 06/14/18 22:25 Serum or plasma lactate measurement (moles/volume) 1.06 mmol/L 0.50-2.00 Encounters ACCT No. Visit Date/Time Discharge Status Pt. Type Provider Facility Loc./Unit Complaint [id number] 06/14/2018 19:53:00 06/15/2018 00:17:00 DIS Emergency MARTÍNEZ OLIVA, KASSANDRA Sampson [facility] ER FEVER [id number] 07/03/2013 01:35:00 07/03/2013 02:32:00 DIS Emergency ERMIAS OLIVA, KISHAN Boss [facility] ER ABD PAIN [id number] 06/09/2013 10:43:00 06/09/2013 12:18:00 DIS Emergency KASSANDRA SOLIZ MD [facility] ER ABDOMINAL PAIN [id number] 06/26/2018 19:04:00 ACT Emergency DAVID HENNING DO [facility] ER NEPHROSTOMY TUBE POSS OUT OF PLACE [id number] 06/14/2018 14:56:00 06/14/2018 23:59:59 DIS Outpatient [facility] [id number] 06/14/2018 09:14:00 06/14/2018 23:59:59 DIS Outpatient [facility] [id number] 06/14/2018 08:45:00 06/14/2018 23:59:59 DIS Outpatient [facility] [id number] 06/09/2018 08:38:10 06/09/2018 23:59:59 DIS Outpatient Fei [facility] recheck per Dr Ballesteros Told to come at 8:30 and may need to wait [id number] 06/05/2018 16:50:00 06/05/2018 23:59:59 DIS Outpatient [facility] [id number] 06/01/2018 12:44:47 06/01/2018 23:59:59 DIS Outpatient Francine Ro [facility] ob check [id number] 04/28/2018 00:00:00 04/28/2018 23:59:59 DIS Outpatient Scanned Documents [id number] 04/27/2018 08:58:04 04/27/2018 23:59:59 DIS Outpatient Francine Ro [facility] DRUG COUNSELOR [id number] 12/19/2013 14:06:00 12/19/2013 23:59:59 CLS Outpatient LIZ CARVALHO APRN [id number] 11/07/2013 11:33:00 11/07/2013 23:59:59 CLS Outpatient LZI CARVALHO APRN [id number] 07/25/2013 11:24:00 07/25/2013 23:59:59 CLS Outpatient LIZ CARVALHO APRN Gera [id number] 01/03/2013 13:21:00 01/03/2013 23:59:59 CLS Outpatient ANDREW CARVALHO APRNASYA Boss [id number] 12/27/2015 08:07:00 Document Registration [id number] 06/14/2018 11:28:00 06/14/2018 23:59:00 DIS Outpatient Heeb, [facility] LAB LAB WORK [id number] 06/12/2018 13:11:00 06/12/2018 23:59:00 DIS Outpatient Heeb, [facility] JACKIE CYSTO W/HOLMIUM LSAER LT [id number] 06/05/2018 09:54:00 06/05/2018 23:59:00 DIS Outpatient Heeb, [facility] JACKIE STONE [id number] 04/27/2018 15:59:00 04/27/2018 23:59:00 DIS Outpatient Francine Ro [facility]
--- NOTE | 2018-06-26 19:30 | ED General ---
General Chief Complaint: Catheter/Drain/Tube Problems Stated Complaint: NEPHROSTOMY TUBE POSS OUT OF PLACE Source of Information: Patient History of Present Illness Date Seen by Provider: Jun 26, 2018 Time Seen by Provider: 19:15 Initial Comments PT ARRIVES VIA POV WITH PARENTS PT STATES SHE WAS JUST DISMISSED FROM ICU AT THIS AFTERNOON AND GOT HOME AT 1530 PT HAD LEFT NEPHROSTOMY TUBE PLACED FOR UTI/PYELONEPHRITIS AND "FLUID AROUND HER KIDNEY" 1 WEEK AGO STATES SHE IS 18 WEEKS AND COULD NOT HAVE A CT TO CHECK FOR KIDNEY STONE--PT HAS HISTORY OF KIDNEY STONES IN THE PAST PT STATES THAT 30 MINUTES AGO, SHE SAT DOWN ON THE NEPHROSTOMY TUBING AND IT PULLED AND STATES SHE DOES NOT THINK IT IS DRAINING NOW. NO PAIN OR BLEEDING FROM THE AREA, AND DRESSING IS STILL IN PLACE. PT EMPTIED UROSTOMY BAG AT 1530 AND HAS 100 ML URINE IN IT NOW. PT IS VOIDING NORMALLY AND NO BLOOD IN URINE. NO FEVER NO NAUSEA/VOMITING PT HAS FOLLOW UP APPOINTMENT AT 07/27/18 PT STATES SHE IS STUDENT AT IN [place], PARENTS LIVE HERE. Allergies and Home Medications Allergies Coded Allergies: No Known Drug Allergies (Unverified , 06/09/13) Home Medications Hydrocodone Bit/Acetaminophen 1 Tab Tablet, 1-2 TAB PO Q6H PRN for PAIN Prescribed by: KISHAN MONSON on 07/03/13 0224 Patient Home Medication List Home Medication List Reviewed: Yes Review of Systems Review of Systems Constitutional: no symptoms reported Cardiovascular: no symptoms reported Gastrointestinal: no symptoms reported Genitourinary: see HPI Musculoskeletal: no symptoms reported Skin: no symptoms reported Past Ijbtcjs-Udbqkh-Kqxzrn Hx Patient Social History Recent Foreign Travel: No Contact w/Someone Who Travel: No Recent Hopitalizations: No Seasonal Allergies Seasonal Allergies: No (that she had a surgeries) Past Medical History Surgeries: Yes (lithotripsy) Appendectomy, Renal, Tonsillectomy Respiratory: No Cardiac: No Neurological: No : Yes Reproductive Disorders: No Sexually Transmitted Disease: No Genitourinary: Yes Kidney Infection, Bladder Infection, Kidney Stones Gastrointestinal: No Musculoskeletal: No Endocrine: No HEENT: No Cancer: No Psychosocial: No Integumentary: No Blood Disorders: No Physical Exam Vital Signs Vital Signs - First Documented 06/26/18 19:07 Temp 98.0 Pulse 93 Resp 18 B/P (MAP) 124/96 (105) Pulse Ox 99 Capillary Refill : Height, Weight, BMI Height: 5'0" Weight: 145lbs. oz. 65.019399hc; 21.63 BMI Method:Stated General Appearance: No Apparent Distress, WD/WN Respiratory: Normal Breath Sounds Cardiovascular: Regular Rate, Rhythm, No Murmur Gastrointestinal: Non Tender, Soft, Other Back: Other (LEFT NEPHROSTOMY TUBE SITE--DRESSING IS CLEAN/DRY / INTACT. NEPHROSTOMY TUBE IS SUTURED IN PLACE WITH NO SIGNIFICANT LAXITY. INCISION SITE IS INTACT WITH NO BLEEDING OR SIGNS OF INFECTION. NO TENDERNESS OR FULLNESS AROUND THE AREA. NO DRAINAGE FROM SITE OR LEAKING OF URINE AROUND SITE. DISTAL TUBING APPEARS TO BE INTACT. ) Extremity: Normal Inspection Neurologic/Psychiatric: Alert, Oriented x3, No Motor/Sensory Deficits, Normal Mood/Affect, grief counsellor II-XII Norm as Tested Skin: Normal Color, Warm/Dry; No Rash Progress/Results/Core Measures Suspected Sepsis SIRS Temperature: Pulse: Respiratory Rate: Blood Pressure / Mean: Results/Orders Vital Signs/I&O 06/26/18 06/26/18 19:07 19:35 Temp 98.0 98.0 Pulse 93 93 Resp 18 18 B/P (MAP) 124/96 (105) 124/96 (105) Pulse Ox 99 99 Capillary Refill : Progress Note : Progress Note FHR 166 NEPHROSTOMY IRRIGATED WITH STERILE SALINE--EASILY FLUSHES WITH GOOD RETURN OF SALINE AND URINE. URINE IS CLEAR. NO PAIN WITH FLUSHING, NO FULLNESS AROUND SITE, AND NO LEAKING AROUND SITE WITH FLUSHING. Departure Impression Primary Impression: NEPHROSTOMY TUBE CHECK Disposition: 01 HOME, SELF-CARE Condition: Stable Departure-Patient Inst. Referrals: NO,LOCAL PHYSICIAN (PCP/Family) Primary Care Physician Patient Instructions: Nephrostomy, Percutaneous (DC) Add. Discharge Instructions: FOLLOW ALL INSTRUCTIONS GIVEN TO YOU BY SARAH All discharge instructions reviewed with patient and/or family. Voiced understanding. DAVID HENNING DO Jun 26, 2018 19:30
[2018-06-26 19:35] VITALS: BP 124/96
== END 2018-06-26 19:40 | disposition home or self-care (01) ==
LOC: EDUNIT# 19:02 → ER 19:04
DX: Z43.6 Encounter for attention to other artificial openings of urinary tract (principal); Z87.442 Personal history of urinary calculi; Z90.89 Acquired absence of other organs; Z90.49 Acquired absence of other specified parts of digestive tract; Z87.448 Personal history of other diseases of urinary system

== ENCOUNTER → 2018-09-15 | Outpatient (CLI) | payer MEDICAID ==
[2018-09-15 11:44] LABS: BASOPHILS % (AUTO) 0 % (0-10); EOSINOPHILS # (AUTO) 0.1 10^3/uL (0.0-0.3); EOSINOPHILS % (AUTO) 1 % (0-10); HEMATOCRIT 34 % (35-52); HEMOGLOBIN 11.7 G/DL (11.5-16.0); LYMPHOCYTES # (AUTO) 1.6 X 10^3 (1.0-4.0); LYMPHOCYTES % (AUTO) 14 % (12-44); MEAN CORPUSCULAR HEMOGLOBIN 28 PG (25-34); MEAN CORPUSCULAR HGB CONC 34 G/DL (32-36); MEAN CORPUSCULAR VOLUME 81 FL (80-99); MEAN PLATELET VOLUME 10.3 FL (7.4-10.4); MONOCYTES # (AUTO) 0.6 X 10^3 (0.0-1.0); MONOCYTES % (AUTO) 6 % (0-12); NEUTROPHILS # (AUTO) 8.7 X 10^3 (1.8-7.8); NEUTROPHILS % (AUTO) 79 % (42-75); PLATELET COUNT 284 10^3/uL (130-400); RED CELL DISTRIBUTION WIDTH 12.8 % (10.0-14.5)
== END ==
LOC: LAB 10:19
DX: Z34.93 Encounter for supervision of normal pregnancy, unspecified, third trimester (principal)
CPT/HCPCS: 36415; 82951; 82962; 85025; 86762; 86780; 86850; 86900; 86901; 87340

== ENCOUNTER 2018-10-08 06:31 | Emergency (ER) | payer MEDICAID ==
[~2018-10-08] VITALS: Ht 152.4 cm; Wt 72.1 kg
--- OUTSIDE RECORDS SUMMARY | 2018-10-08 06:37 | XMS REPORT ---
Author Author LIZ CARVALHO [facility] [employer] [facility] Address [address] [place] [address] Care Team Providers Care Vp Talent Management Name Role Phone MARYJONILIZ Unavailable PROBLEMS Type Condition ICD9-CM Code [id number] Code Onset Dates Condition Status SNOMED Code Problem Anxiety F41.9 Active 24280694 Problem Acne L70.9 Active 83708126 ALLERGIES Substance Reaction Event Type Date Status N.K.D.A. Unknown Non Drug Allergy Apr, Unknown SOCIAL HISTORY No smoking Hx information available PLAN OF CARE Activity Details Follow Up prn Reason: VITAL SIGNS Height 59.5 in 2016-04-21 Weight 130 lbs 2016-04-21 Temperature 98 degrees Fahrenheit 2016-04-21 Heart Rate 70 bpm 2016-04-21 Respiratory Rate 18 2016-04-21 BMI 25.81 kg/m2 2016-04-21 Blood pressure systolic 112 mmHg 2016-04-21 Blood pressure diastolic 66 mmHg 2016-04-21 MEDICATIONS Unknown Medications RESULTS No Results PROCEDURES Procedure Date Ordered Related Diagnosis Body Site DEPO MEDROL 80 MG/ML Apr 21, 2016 THER/PROPH/DIAG INJ, SC/IM Apr 21, 2016 Office Visit, Est Pt., Level 4 Apr 21, 2016 IMMUNIZATIONS Vaccine Route Administration Date Status DEPO MEDROL 80 MG/ML IM Intramuscular Apr 21, 2016 Administered
--- OUTSIDE RECORDS SUMMARY | 2018-10-08 06:37 | XMS REPORT ---
Author Author BRIE PERKINS Organization [employer] Address Unknown Phone Unavailable Care Team Providers Care Dentistry Teacher Name Role Phone BRIE PERKINS CP Unavailable Allergies, Adverse Reactions, Alerts Substance Reaction Event Type N.K.D.A. Info Not Available Non Drug Allergy Problems Problem Type Condition ICD-9 Code Onset Dates Condition Status Assessment Exercise counseling V65.41 Active Assessment Dietary counseling V65.3 Active Assessment Sports physical V70.3 Active Medications No Known Medications Procedures Procedure Coding System Code Date VISUAL ACUITY SCREEN CPT-4 23313 Nov 07, 2014 Vital Signs Date/Time: Nov 07, 2014 Temperature 98.0 F BMIPercentile 83.73 % Weight 125lbs 2oz lbs Height 59.5 in BMI 24.85 Index Blood Pressure Diastolic 62 mmHg Blood Pressure Systolic 102 mmHg Cardiac Monitoring Heart Rate 68 bpm Wt Percentile 57.29 % Ht Percentile 3.46 % Results No Known Results Summary Purpose [employer] Submission
--- OUTSIDE RECORDS SUMMARY | 2018-10-08 06:37 | XMS REPORT ---
Author Author DELLA CORONADO Organization [facility] Address [address] [place] [address] Care Team Providers Care Subassembly Supervisor Name Role Phone DELLA CORONADO Unavailable PROBLEMS Type Condition ICD9-CM Code BMN28-IK Code Onset Dates Condition Status SNOMED Code Problem Anxiety F41.9 Active 97713447 Problem Acne L70.9 Active [id number] ALLERGIES No Known Allergies ENCOUNTERS Encounter Location Date Diagnosis [facility] [address] [address] Sep, Visit for TB skin test Z11.1 [facility] [address] [address] Aug, Anxiety F41.9 [facility] [address] [address] Jun, Urinary frequency R35.0 and Acute cystitis without hematuria N30.00 [facility] [address] [address] May, [facility] [address] [id number] Apr, Acute non-recurrent frontal sinusitis J01.10 [facility] [address] [address] Dec, [facility] [address] [address] Dec, Encounter for test, result unknown Z32.00 [facility] [address] [address] Oct, Sore throat J02.9 and Pharyngitis, unspecified etiology J02.9 [facility] [id number] [place] [phone] Apr, Acne L70.9 [facility] [id number] [place] [phone] Feb, Screening for tuberculosis Z11.1 [facility] [id number] [place] [phone] Oct, Sports physical V70.3 ; Exercise counseling V65.41 and Dietary counseling V65.3 [facility] [id number] [place] [phone] Dec, [facility] [id number] [place] [phone] Dec, [facility] [id number] [place] [phone] Oct, [facility] [id number] [place] [phone] Oct, [facility] [id number] [place] [phone] July, [facility] [id number] [place] [phone] July, [facility] [id number] [place] [phone] Dec, [facility] [id number] [place] [phone] Dec, IMMUNIZATIONS No Known Immunizations SOCIAL HISTORY Never Assessed REASON FOR VISIT heart palpitations (tip with physical activity), shortness of breath, increased urination, productive cough- unable to sleep started about 1 week ago Jeevan Moody PLAN OF CARE Activity Details Follow Up 2 Weeks Reason:anxiety VITAL SIGNS Height 59.5 in 2016-09-15 Weight 126 lbs 2016-09-15 Temperature 98.4 degrees Fahrenheit 2016-09-15 Heart Rate 96 bpm 2016-09-15 Respiratory Rate 20 2016-09-15 BMI 25.02 kg/m2 2016-09-15 Blood pressure systolic 126 mmHg 2016-09-15 Blood pressure diastolic 88 mmHg 2016-09-15 MEDICATIONS Medication Instructions Dosage Frequency Start Date End Date Duration Status Ativan 0.5 MG Orally every 6 hrs 1 tablet as needed 6h Aug, Active Paroxetine HCl 20 MG Orally Once a day 1 tablet in the morning 24h Aug, 30 day(s) Active RESULTS No Results PROCEDURES No Known procedures INSTRUCTIONS MEDICATIONS ADMINISTERED No Known Medications MEDICAL (GENERAL) HISTORY Type Description Date Medical History eating disorder at 15 years of age - anorexia and bulemia - patient states that she received treatment and has recovered, tries to eat healthy but does not restrict calories, binge or purge Surgical History appendectomy 2008 Surgical History T&A 2002 Hospitalization History stayed overnight for observation after appendectomy 2008
--- OUTSIDE RECORDS SUMMARY | 2018-10-08 06:37 | XMS REPORT ---
Author Author LIZ CARVAHLO [facility] eClinicalWorks Address Unknown Phone Unavailable Care Team Providers Care Grated Cheese Maker Name Role Phone LIZ CARVALHO Unavailable Allergies No Known Allergies Problems Problem Type Condition Code Onset Dates Condition Status Assessment Screening for tuberculosis Z11.1 Active Medications No Known Medications Procedures Procedure Coding System Code Date TB INTRADERMAL TEST CPT-4 86781 Feb 19, 2015 Results No Known Results Summary Purpose eClinicalWorks Submission
--- OUTSIDE RECORDS SUMMARY | 2018-10-08 06:37 | XMS REPORT ---
Author JEZ Conner [facility] eClinicalWorks Address Unknown Phone Unavailable Care Team Providers Care Strategic Communications Manager Name Role Phone JEZ CAGE CP Unavailable Allergies No Known Allergies Problems Problem Type Condition Code Onset Dates Condition Status Problem Acne L70.9 Active Medications No Known Medications Results No Known Results Summary Purpose eClinicalWorks Submission
--- OUTSIDE RECORDS SUMMARY | 2018-10-08 06:38 | XMS REPORT | Continuity of Care Document ---
Author Organization Unknown Address Unknown Allergies Active Description Code Type Severity Reaction Onset Reported/Identified Relationship to Patient Clinical Status Yes No Known Drug Allergies [id number] Drug Allergy Unknown N/A 06/09/2013 Medications There is no data. Problems Date Dx Coded Attending Type Code Diagnosis Diagnosed By 06/09/2013 KASSANDRA SOLIZ MD Ot 599.0 URIN TRACT INFECTION NOS 06/09/2013 KASSANDRA SOLIZ MD Ot 789.09 ABDOMINAL PAIN, OTHER SPECIFIED SITE 07/03/2013 ERMIAS OLIVA, KISHAN Boss Ot 789.04 ABDOMINAL PAIN, LEFT LOWER QUADRANT 06/15/2018 KASSANDRA SOLIZ MD Ot A41.9 SEPSIS, UNSPECIFIED ORGANISM 06/15/2018 KASSANDRA SOLIZ MD Ot O23.42 UNSP INFCT OF URINARY TRACT IN 06/15/2018 KASSANDRA SOLIZ MD Ot O26.892 OT RELATED CONDITIONS, SECOND 06/15/2018 KASSANDRA SOLIZ MD Ot O98.812 OT MATERNAL INFEC/PARASTC DISEASES COMP 06/15/2018 KASSANDRA SLOIZ MD Ot Z3A.15 15 WEEKS GESTATION OF 06/15/2018 KASSANDRA SOLIZ MD Ot 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 06/15/2018 KASSANDRA SOLIZ MD Ot Z90.49 ACQUIRED ABSENCE OF OTHER SPECIFIED PART 06/15/2018 KASSANDRA SOLIZ MD Ot Z90.89 ACQUIRED ABSENCE OF OTHER ORGANS 06/17/2018 KASSANDRA SOLIZ MD Ot A41.9 SEPSIS, UNSPECIFIED ORGANISM 06/17/2018 KASSANDRA SOLIZ MD Ot O23.42 UNSP INFCT OF URINARY TRACT IN 06/17/2018 KASSANDRA SOLIZ MD Ot O26.892 OT RELATED CONDITIONS, SECOND 06/17/2018 KASSANDRA SOLIZ MD Ot O98.812 OT MATERNAL INFEC/PARASTC DISEASES COMP 06/17/2018 KASSANDRA SOLIZ MD Ot Z3A.15 15 WEEKS GESTATION OF 06/17/2018 KASSANDRA SOLIZ MD, Ot 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 06/17/2018 KASSANDRA SOLIZ MD, Ot Z90.49 ACQUIRED ABSENCE OF OTHER SPECIFIED PART 06/17/2018 KASSANDRA SOLIZ MD Ot Z90.89 ACQUIRED ABSENCE OF OTHER ORGANS 06/20/2018 KASSANDRA SOLIZ MD Ot A41.9 SEPSIS, UNSPECIFIED ORGANISM 06/20/2018 KASSANDRA SOLIZ MD Ot O23.42 UNSP INFCT OF URINARY TRACT IN 06/20/2018 KASSANDRA SOLIZ MD Ot O26.892 OT RELATED CONDITIONS, SECOND 06/20/2018 KASSANDRA SOLIZ MD Ot O98.812 OT MATERNAL INFEC/PARASTC DISEASES COMP 06/20/2018 KASSANDRA SOLIZ MD Ot Z3A.15 15 WEEKS GESTATION OF 06/20/2018 KASSANDRA SOLIZ MD, Ot 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 06/20/2018 KASSANDRA SOLIZ MD Ot Z90.49 ACQUIRED ABSENCE OF OTHER SPECIFIED PART 06/20/2018 KASSANDRA SOLIZ MD Ot Z90.89 ACQUIRED ABSENCE OF OTHER ORGANS 06/22/2018 KASSANDRA SOLIZ MD Ot A41.9 SEPSIS, UNSPECIFIED ORGANISM 06/22/2018 KASSANDRA SOLIZ MD Ot O23.42 UNSP INFCT OF URINARY TRACT IN 06/22/2018 KASSANDRA SOLIZ MD Ot O26.892 OT RELATED CONDITIONS, SECOND 06/22/2018 KASSANDRA SOLIZ MD Ot O98.812 OT MATERNAL INFEC/PARASTC DISEASES COMP 06/22/2018 KASSANDRA SOLIZ MD Ot Z3A.15 15 WEEKS GESTATION OF 06/22/2018 KASSANDRA SOLIZ MD, Ot 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 06/22/2018 KASSANDRA SOLIZ MD Ot Z90.49 ACQUIRED ABSENCE OF OTHER SPECIFIED PART 06/22/2018 KASSANDRA SOLIZ MD Ot Z90.89 ACQUIRED ABSENCE OF OTHER ORGANS 06/26/2018 MILADY DODAVID Ot Z43.6 ENCOUNTER FOR ATTN TO OTH ARTIF OPENINGS 06/26/2018 DAVID HENNING DO Ot Z87.442 PERSONAL HISTORY OF URINARY CALCULI 06/26/2018 MILADY DAVID BILLS Ot Z87.448 PERSONAL HISTORY OF OTHER DISEASES OF UR 06/26/2018 MILADY DAVID BILLS Ot Z90.49 ACQUIRED ABSENCE OF OTHER SPECIFIED PART 06/26/2018 MILADY DAVID BILLS Ot Z90.89 ACQUIRED ABSENCE OF OTHER ORGANS 06/28/2018 MILADY DAVID BILLS Ot Z43.6 ENCOUNTER FOR ATTN TO OT ARTIF OPENINGS 06/28/2018 MILADY DAVID BILLS Ot Z87.442 PERSONAL HISTORY OF URINARY CALCULI 06/28/2018 MILADY DAVID BILLS Ot Z87.448 PERSONAL HISTORY OF OTHER DISEASES OF UR 06/28/2018 MILADY DAVID BILLS Ot Z90.49 ACQUIRED ABSENCE OF OTHER SPECIFIED PART 06/28/2018 MILADY DAVID BILLS Ot Z90.89 ACQUIRED ABSENCE OF OTHER ORGANS 09/19/2018 MAGUE YAO MD Ot Z34.93 ENCNTR FOR SUPRVSN OF NORMAL PREG, UNSP, 10/02/2018 MAGUE YAO MD Ot Z34.93 ENCNTR FOR SUPRVSN OF NORMAL PREG, UNSP, 10/05/2018 MAGUE YAO MD Ot Z34.93 ENCNTR FOR SUPRVSN OF NORMAL PREG, UNSP, 10/05/2018 MAGUE YAO MD Ot Z34.93 ENCNTR FOR SUPRVSN OF NORMAL PREG, UNSP, Procedures There is no data. Results Test Result Range Complete blood count (CBC) with automated white [...] Automated erythrocyte mean corpuscular hemoglobin concentration measurement (mass/volume) 36 g/dL 32-36 Automated erythrocyte distribution width ratio 12.6 % 10.0- 14.5 Automated blood platelet count (count/volume) 252 10*3/uL [...] Blood monocytes automated count (number/volume) 0.4 10*3 0.0- 1.0 Automated eosinophil count 0.0 10*3/uL 0.0-0.3 Automated [...] Blood lactic acid measurement (moles/volume) 2.09 mmol/L 0.50- 2.00 Comprehensive metabolic panel - 06/14/18 20:05 Serum [...] Serum or plasma aspartate aminotransferase measurement (enzymatic activity/volume) 32 U/L 5-34 Serum or plasma alanine aminotransferase measurement (enzymatic activity/volume) 49 U/L 0-55 Serum or plasma protein [...] gravity of urine by test strip 1.010 1.016-1.022 Urine protein assay by test strip, semi-quantitative [...] sediment leukocyte count by microscopy (number/high power field) [HPF] NRG Bacteria detection in urine sediment [...] culture - 06/14/18 20:15 Bacterial urine culture [id number] NRG COLONY COUNT >100,000/ML NRG FTX;REPORTABLE SENSITIVITY [...] plasma lactate measurement (moles/volume) 1.06 mmol/L 0.50-2.00 Capillary blood glucose measurement by glucometer (mass/volume) - 09/15/18 11:18 Capillary blood glucose measurement by glucometer (mass/volume) 92 mg/dL 70-110 Complete blood count (CBC) with automated white blood cell (WBC) differential - 09/15/18 11:28 Blood leukocytes automated count (number/volume) 11.0 10*3/uL 4.3-11.0 Blood erythrocytes automated count (number/volume) 4.19 10*6/uL 4.35-5.85 Venous blood hemoglobin measurement (mass/volume) 11.7 g/dL 11.5-16.0 Blood hematocrit (volume fraction) 34 % 35-52 Automated erythrocyte mean corpuscular volume 81 [foz_us] 80-99 Automated erythrocyte mean corpuscular hemoglobin (mass per erythrocyte) 28 pg 25-34 Automated erythrocyte mean corpuscular hemoglobin concentration measurement (mass/volume) 34 g/dL 32-36 Automated erythrocyte distribution width ratio 12.8 % 10.0- 14.5 Automated blood platelet count (count/volume) 284 10*3/uL 130-400 Automated blood platelet mean volume measurement 10.3 [foz_us] 7.4-10.4 Automated blood neutrophils/100 leukocytes 79 % 42-75 Automated blood lymphocytes/100 leukocytes 14 % 12-44 Blood monocytes/100 leukocytes 6 % 0-12 Automated blood eosinophils/100 leukocytes 1 % 0-10 Automated blood basophils/100 leukocytes 0 % 0-10 Blood neutrophils automated count (number/volume) 8.7 10*3 1.8-7.8 Blood lymphocytes automated count (number/volume) 1.6 10*3 1.0-4.0 Blood monocytes automated count (number/volume) 0.6 10*3 0.0- 1.0 Automated eosinophil count 0.1 10*3/uL 0.0-0.3 Automated blood basophil count (count/volume) 0.0 10*3/uL 0.0-0.1 Blood type T Indirect antibody screen panel - 09/15/18 11:28 ABO+Rh group OP NRG Blood group antibody screen NEGATIVE NRG Serum or plasma glucose measurement 1 hour post dose glucose (mass/volume) - 09/15/18 11:28 Serum or plasma glucose measurement 1 hour post dose glucose (mass/volume) NRG Body fluid hepatitis B virus surface antigen detection - 09/15/18 11:28 Confirmatory quantitative serum or plasma hepatitis B virus surface antigen measurement Non-Reactive Non-Reactive RUBELLA ANTIBODY IGG - 09/15/18 11:28 Interpretation of serum rubella virus IgG antibody test Positive Negative Rubella IgG ab 18.30 % 0.00-0.89 Serum reagin antibody assay (units/volume) by RPR - 09/15/18 11:28 Serum reagin antibody assay (units/volume) by RPR Non-Reactive Non-Reactive Encounters ACCT No. Visit Date/Time Discharge Status Pt. Type Provider Facility Loc./Unit Complaint [id number] 09/15/2018 10:19:00 09/15/2018 23:59:59 CLS Outpatient NAJMA OLIVA, MAGUE Lundberg [facility] LAB 28 WEEK OB PROFILE [id number] 06/26/2018 19:04:00 06/26/2018 19:40:00 DIS Emergency DAVID HENNING DO [facility] ER NEPHROSTOMY TUBE POSS OUT OF PLACE [id number] 06/14/2018 19:53:00 06/15/2018 00:17:00 DIS Emergency MARTÍNEZ OLIVA, KASSANDRA Sampson [facility] ER FEVER [id number] 07/03/2013 01:35:00 07/03/2013 02:32:00 DIS Emergency KISHAN MONSON MD [facility] ER ABD PAIN [id number] 06/09/2013 10:43:00 06/09/2013 12:18:00 DIS Emergency MARTÍNEZ OLIVA, KASSANDRA Sampson [facility] ER ABDOMINAL PAIN
--- OUTSIDE RECORDS SUMMARY | 2018-10-08 06:38 | XMS REPORT ---
Author Author ASA SALAZAR [facility] eClinicalWorks Address Unknown Phone Unavailable Care Team Providers Care Assistant Art Director Name Role Phone ASA SALAZAR CP Unavailable Allergies, Adverse Reactions, Alerts Substance Reaction Event Type N.K.D.A. Info Not Available Non Drug Allergy Problems Problem Type Condition Code Onset Dates Condition Status Assessment Sore throat J02.9 Active Assessment Pharyngitis, unspecified etiology J02.9 Active Problem Acne L70.9 Active Medications Medication Code System Code Instructions Start Date End Date Status Dosage Amoxicillin [facility] [address]-41 500 MG Orally every 12 hrs Nov 16, 2015 Nov 26, 2015 1 tablet Procedures Procedure Coding System Code Date Office Visit, Est Pt., Level 3 CPT-4 28552 Nov 16, 2015 STREP A ASSAY W/OPTIC CPT-4 60721 Nov 16, 2015 Vital Signs Date/Time: Nov 16, 2015 Blood Pressure Systolic 102 mmHg Cardiac Monitoring Heart Rate 66 bpm Weight 128.4 lbs Wt Percentile 58.94 % Blood Pressure Diastolic 60 mmHg Results No Known Results Summary Purpose eClinicalWorks Submission
[2018-10-08] MEDS ORDERED: NS IV 1000 ML 1,000 ML IV SCH (07:06)
[2018-10-08 07:15] LABS: BILIRUBIN,URINE NEGATIVE (NEGATIVE); CLARITY,URINE CLEAR; COLOR,URINE YELLOW; GLUCOSE, URINE (UA) NEGATIVE (NEGATIVE); KETONES,URINE NEGATIVE (NEGATIVE); LEUKOCYTE ESTERASE ,URINE 3+ (NEGATIVE); NITRITE,URINE NEGATIVE (NEGATIVE); PH,URINE 7 (5-9); PROTEIN,URINE 1+ (NEGATIVE); UROBILINOGEN,URINE NORMAL (NORMAL)
[2018-10-08 07:19] LABS: BASOPHILS % (AUTO) 0 % (0-10); EOSINOPHILS % (AUTO) 0 % (0-10); HEMATOCRIT 35 % (35-52); HEMOGLOBIN 11.8 G/DL (11.5-16.0); LYMPHOCYTES % (AUTO) 13 % (12-44); MEAN CORPUSCULAR HEMOGLOBIN 27 PG (25-34); MEAN CORPUSCULAR HGB CONC 34 G/DL (32-36); MEAN CORPUSCULAR VOLUME 81 FL (80-99); MEAN PLATELET VOLUME 9.9 FL (7.4-10.4); MONOCYTES % (AUTO) 12 % (0-12); NEUTROPHILS # (AUTO) 5.8 X 10^3 (1.8-7.8); NEUTROPHILS % (AUTO) 75 % (42-75); PLATELET COUNT 260 10^3/uL (130-400); RED CELL DISTRIBUTION WIDTH 13.1 % (10.0-14.5); WHITE BLOOD COUNT 7.8 10^3/uL (4.3-11.0)
[2018-10-08] MEDS ORDERED: NITR-65 PO (07:26)
[2018-10-08 07:31] LABS: INR 0.9 (0.8-1.4); PROTHROMBIN TIME PATIENT 12.5 SEC (12.2-14.7)
[2018-10-08 07:32] LABS: BILIRUBIN,URINE NEGATIVE (NEGATIVE); CLARITY,URINE CLEAR; COLOR,URINE YELLOW; GLUCOSE, URINE (UA) NEGATIVE (NEGATIVE); KETONES,URINE NEGATIVE (NEGATIVE); LEUKOCYTE ESTERASE ,URINE 3+ (NEGATIVE); NITRITE,URINE POSITIVE (NEGATIVE); PH,URINE 7 (5-9); PROTEIN,URINE 3+ (NEGATIVE); UROBILINOGEN,URINE NORMAL (NORMAL)
[2018-10-08 07:34] LABS: BACTERIA,URINE LARGE /HPF; YEAST,URINE FEW /HPF
[2018-10-08 07:37] LABS: ALANINE AMINOTRANSFERASE 23 U/L (0-55); ALBUMIN 3.6 GM/DL (3.2-4.5); ALKALINE PHOSPHATASE 165 U/L (40-136); BILIRUBIN,TOTAL 0.4 MG/DL (0.1-1.0); BUN/CREATININE RATIO 11; CALCIUM 9.4 MG/DL (8.5-10.1); CARBON DIOXIDE 17 MMOL/L (21-32); CHLORIDE 107 MMOL/L (98-107); CREATININE SERUM 0.64 MG/DL (0.60-1.30); GFR ESTIMATED > 60; GLUCOSE 95 MG/DL (70-105); POTASSIUM 3.7 MMOL/L (3.6-5.0); SODIUM 136 MMOL/L (135-145); TOTAL PROTEIN 7.4 GM/DL (6.4-8.2)
[2018-10-08] MEDS ORDERED: fentaNYL INJECTION 100 MCG/2 ML AMP IVP STA (07:47)
[2018-10-08 07:55] LABS: BACTERIA,URINE MODERATE /HPF
[2018-10-08 07:56] LABS: AMORPHOUS SEDIMENT,UR RARE AMOR URATES /LPF
[2018-10-08 07:57] LABS: CALCIUM OXALATE CRYSTALS,UR RARE /LPF
--- NOTE | 2018-10-08 08:42 | ED General ---
General Chief Complaint: Abdominal/GI Problems Stated Complaint: CHEST PAINS,FEVER,BODY ACHES Nursing Triage Note: Pt ambulated to room 8 with CO left sided chest pain and possible kidney stone. Pt had nephrostomy tube placed in left at to make sure kidney is draining. Pt diagnosed with UTI last week and is on maintenance antibiotics till the end of her . Nursing Sepsis Screen: No Definite Risk Source of Information: Patient Exam Limitations: No Limitations History of Present Illness Date Seen by Provider: Oct 08, 2018 Time Seen by Provider: 07:00 Initial Comments Here with report of sided chest pain and has kidney stone on the left with nephrostomy tube in place on the left. She is currently on nitrofurantoin daily maintenance antibiotic. She did have a urinary tract infection last week and did have antibiotics then. Reported fever of 102 today. Arrives tachycardic and overall not feeling well. Denies nausea or vomiting. She is approximately 32 weeks . Nephrostomy tube placed at . She is moving here from [place], [place] and has new OB appointment at [facility] upcoming in the next couple of days. Timing/Duration: 1-2 Days Severity: Moderate Modifying Factors: improves with Medication; worse with Movement Associated Systoms: Chest Pain; No Cough; Fever/Chills; No Nausea/Vomiting, No Shortness of Air; Weakness Allergies and Home Medications Allergies Coded Allergies: No Known Drug Allergies (Unverified , 06/09/13) Home Medications Nitrofurantoin Monohyd/M-Cryst 100 Mg Capsule, 1 TAB PO DAILY, (Reported) Patient Home Medication List Home Medication List Reviewed: Yes Review of Systems Review of Systems Constitutional: see HPI, chills, fever EENTM: no symptoms reported Respiratory: no symptoms reported Cardiovascular: see HPI, chest pain; No edema, No palpitations Gastrointestinal: abdominal pain; No nausea, No vomiting Genitourinary: see HPI, pain : Yes Expected Date of Delivery: Dec 04, 2018 Musculoskeletal: No back pain; muscle pain Skin: no symptoms reported Psychiatric/Neurological: No Symptoms Reported All Other Systems Reviewed Negative Unless Noted: Yes Past Yotlbhi-Zythvz-Nqzxpd Hx Past Med/Social Hx: Reviewed Nursing Past Med/Soc Hx Patient Social History Alcohol Use: Denies Use Recreational Drug Use: No Smoking Status: Never a Smoker 2nd Hand Smoke Exposure: No Recent Foreign Travel: No Contact w/Someone Who Travel: No Recent Infectious Disease Expo: No Recent Hopitalizations: No Seasonal Allergies Seasonal Allergies: No Past Medical History Surgeries: Yes (, NEPHROSTOMY TUBE PLACEMENT) Appendectomy, Renal, Tonsillectomy Respiratory: No Cardiac: No Neurological: No : Yes Expected Date of Delivery: Dec 04, 2018 Reproductive Disorders: No Sexually Transmitted Disease: No Genitourinary: Yes Kidney Infection, Bladder Infection, Kidney Stones Gastrointestinal: No Musculoskeletal: No Endocrine: No HEENT: No Cancer: No Psychosocial: No Integumentary: No Blood Disorders: No Family Medical History Reviewed Nursing Family Hx No Pertinent Family Hx Physical Exam-Suspected Sepsis Physical Exam Vital Signs Vital Signs - First Documented 10/08/18 07:04 Temp 100.1 Pulse 140 Resp 18 B/P (MAP) 132/72 (92) Pulse Ox 97 O2 Delivery Nasal Cannula Capillary Refill : Less Than 3 Seconds Blood Pressure Mean: 92 Height, Weight, BMI Height: 5'0" Weight: 159lbs. 0oz. 72.776678ze; 21.63 BMI Method:Stated General Appearance: WD/WN, Mild Distress HEENT: PERRL/EOMI, Pharynx Normal Neck: Non Tender, Supple Respiratory: Lungs Clear, Normal Breath Sounds Cardiovascular: No Murmur, Tachycardia Gastrointestinal: Non Tender, Soft, Other (gravid) Back: Normal Inspection, No CVA Tenderness, No Vertebral Tenderness Extremity: Normal Range of Motion, Non Tender Neurologic/Psychiatric: Alert, Oriented x3 Skin: normal color, warm/dry Focused Exam Lactate Level 10/08/18 07:10: Lactic Acid Level 1.05 Lactic Acid Level Progress/Results/Core Measures Suspected Sepsis Recent Fever Within 48 Hours: No Infection Criteria Present: Suspected New Infection New/Unexplained Altered Menta: No Sepsis Screen: No Definite Risk SIRS Temperature:100.1 Pulse: 140 Respiratory Rate: 18 Laboratory Tests 10/08/18 07:10: White Blood Count 7.8 Blood Pressure 132 /72 Mean: 92 10/08/18 07:10: Lactic Acid Level 1.05 Laboratory Tests 10/08/18 07:10: Creatinine 0.64, INR Comment 0.9, Platelet Count 260, Total Bilirubin 0.4 Results/Orders Lab Results Laboratory Tests Test 10/08/18 07:02 10/08/18 07:05 10/08/18 07:10 Range/Units Urine Color YELLOW YELLOW Urine Clarity CLEAR CLEAR Urine pH 7 7 5-9 Urine Specific [place] 1.010 L 1.010 L 1.016-1.022 Urine Protein 1+ H 3+ H NEGATIVE Urine Glucose (UA) NEGATIVE NEGATIVE NEGATIVE Urine Ketones NEGATIVE NEGATIVE NEGATIVE Urine Nitrite NEGATIVE POSITIVE H NEGATIVE Urine Bilirubin NEGATIVE NEGATIVE NEGATIVE Urine Urobilinogen NORMAL NORMAL NORMAL MG/DL Urine Leukocyte Esterase 3+ H 3+ H NEGATIVE Urine RBC (Auto) 4+ H 4+ H NEGATIVE Urine RBC 5-10 H 2-5 H /HPF Urine WBC 5-10 H 10-25 H /HPF Urine Squamous Epithelial Cells 10-25 H /HPF Urine Crystals NONE PRESENT H /LPF Urine Bacteria LARGE H MODERATE H /HPF Urine Casts NONE NONE /LPF Urine Mucus NEGATIVE SMALL H /LPF Urine Yeast FEW H /HPF Urine Culture Indicated YES YES Urine Calcium Oxalate Crystals RARE H /LPF Urine Amorphous Sediment RARE KIT URATES H /LPF White Blood Count 7.8 4.3-11.0 10^3/uL Red Blood Count 4.36 4.35-5.85 10^6/uL Hemoglobin 11.8 11.5-16.0 G/DL Hematocrit 35 35-52 % Mean Corpuscular Volume 81 80-99 FL Mean Corpuscular Hemoglobin 27 25-34 PG Mean Corpuscular Hemoglobin Concent 34 32-36 G/DL Red Cell Distribution Width 13.1 10.0-14.5 % Platelet Count 260 130-400 10^3/uL Mean Platelet Volume 9.9 7.4-10.4 FL Neutrophils (%) (Auto) 75 42-75 % Lymphocytes (%) (Auto) 13 12-44 % Monocytes (%) (Auto) 12 0-12 % Eosinophils (%) (Auto) 0 0-10 % Basophils (%) (Auto) 0 0-10 % Neutrophils # (Auto) 5.8 1.8-7.8 X 10^3 Lymphocytes # (Auto) 1.0 1.0-4.0 X 10^3 Monocytes # (Auto) 1.0 0.0-1.0 X 10^3 Eosinophils # (Auto) 0.0 0.0-0.3 10^3/uL Basophils # (Auto) 0.0 0.0-0.1 10^3/uL Prothrombin Time 12.5 12.2-14.7 SEC INR Comment 0.9 0.8-1.4 Activated Partial Thromboplast Time 27 24-35 SEC Sodium Level 136 135-145 MMOL/L Potassium Level 3.7 3.6-5.0 MMOL/L Chloride Level 107 98-107 MMOL/L Carbon Dioxide Level 17 L 21-32 MMOL/L Anion Gap 12 5-14 MMOL/L Blood Urea Nitrogen 7 7-18 MG/DL Creatinine 0.64 0.60-1.30 MG/DL Estimat Glomerular Filtration Rate > 60 BUN/Creatinine Ratio 11 Glucose Level 95 70-105 MG/DL Lactic Acid Level 1.05 0.50-2.00 MMOL/L Calcium Level 9.4 8.5-10.1 MG/DL Corrected Calcium 9.7 8.5-10.1 MG/DL Total Bilirubin 0.4 0.1-1.0 MG/DL Aspartate Amino Transf (AST/SGOT) 19 5-34 U/L Alanine Aminotransferase (ALT/SGPT) 23 0-55 U/L Alkaline Phosphatase 165 H 40-136 U/L Total Protein 7.4 6.4-8.2 GM/DL Albumin 3.6 3.2-4.5 GM/DL My Orders Orders - KASSANDRA SOLIZ MD Ua Culture If Indicated (10/08/18 06:43) Cbc With Automated Diff (10/08/18 07:06) Comprehensive Metabolic Panel (10/08/18 07:06) Blood Culture (10/08/18 07:06) Sputum Culture (10/08/18 07:06) Protime With Inr (10/08/18 07:06) Partial Thromboplastin Time (10/08/18 07:06) Ed Iv/Invasive Line Start (10/08/18 07:06) Ed Iv/Invasive Line Start (10/08/18 07:06) Vital Signs Adult Sepsis Patie Q15M (10/08/18 07:06) O2 (10/08/18 07:06) Remove Rings In Anticipation O (10/08/18 07:06) Lactic Acid Analyzer (10/08/18 07:06) Ns Iv 1000 Ml (Sodium Chloride 0.9%) (10/08/18 07:06) Ua Culture If Indicated (10/08/18 07:14) Urine Culture (10/08/18 07:02) Fentanyl Injection (Sublimaze Injection (10/08/18 07:47) Urine Culture (10/08/18 07:05) Ceftriaxone For Iv Use (Rocephin For I (10/08/18 08:45) Acetaminophen Tablet (Tylenol Tablet) (10/08/18 08:43) Chest 1 View, Ap/Pa Only (10/08/18 08:43) Ns Iv 1000 Ml (Sodium Chloride 0.9%) (10/08/18 08:43) Ekg Tracing (10/08/18 08:54) Betamethasone Acet/Na Phos Inj ([place] (10/08/18 11:30) Medications Given in ED Current Medications Medications Dose Ordered Sig/Kaylin Route Start Time Stop Time Status Last Admin Dose Admin Ceftriaxone Sodium 1000 mg/ Sterile Water 10 ml @ 200 mls/hr ONCE ONCE IV 10/08/18 08:45 10/08/18 08:47 DC 10/08/18 08:59 200 MLS/HR Sodium Chloride 1,000 ml @ 0 mls/hr Q0M ONCE IV 10/08/18 08:43 10/08/18 08:46 DC 10/08/18 09:08 0 MLS/HR Vital Signs/I&O 10/08/18 10/08/18 07:04 09:12 Temp 100.1 Pulse 140 122 Resp 18 18 B/P (MAP) 132/72 (92) 113/69 Pulse Ox 97 O2 Delivery Nasal Cannula Capillary Refill : Less Than 3 Seconds Blood Pressure Mean: 92 Progress Note : Progress Note Seen and evaluated. IV, labs, UA, nephrostomy UA, normal saline 1 L bolus, blood cultures and lactic acid ordered. We'll hold on chest x-ray at this point. Normal saline 1 L bolus. Fentanyl 75 g IV for pain. Monitor patient. 0845: I discussed the case with Dr. Coto, OB on-call for [facility]. We will get NST and evaluate baby. Rocephin 1 g IV. Tylenol 1 g by mouth and repeat normal saline 1 L bolus is been ordered. We do have concerns about caring for this patient at our facility due to lack of resources as well as urology a nd because of high risk . We do want to evaluate baby first but if they've he appears okay then patient would benefit from transfer to where she had all of the procedures done and they have other services. Continue monitor patient. 1015: I have discussed the case with triage nurse. We will fax chart and labs to him and he will assist in finding service for transfer. We will go ahead and fax the chart to him now. Current vital signs blood pressure 107/63, heart rate 117, temperature 97.4 and O2 sat 98% on room air. Patient agrees to transfer. 1118: I discussed the case with Dr. Barnes, high school vice principal attending. She accepts patient for admission to [facility]. Pending bed assignment. She is recommending betamethasone 12 mg IM injection patient has not had this previously. 1130: Patient has not had betamethasone injection so we will give that now. Patient will go by EMS. Pending bed assignment. ECG Initial ECG Impression Date: Oct 08, 2018 Initial ECG Impression Time: 09:15 Initial ECG Rate: 121 Initial ECG Rhythm: S.Tach Comment Sinus tachycardia with normal axis. No evidence of ST elevation [place]. No previous available for comparison. Interpreted by me. Diagnostic Imaging Diagonstic Imaging: Xray Plain Films/CT/US/NM/MRI: chest Comments NAME: JANAK RIVERAMARIBELL [facility]illa [facility] REC#: [id number] PT STATUS: REG ER : 1995 PHYSICIAN: KASSANDRA SOLIZ MD ADMIT DATE: 10/08/18/ER Signed Date of Exam: 10/08/18 CHEST 1 VIEW, AP/PA ONLY INDICATION: Chest pain COMPARISON: 06/15/2018 FINDINGS: Single view the chest demonstrates clear lungs bilaterally. The heart size is normal. There is no pneumothorax. Osseous structures are normal. IMPRESSION: No acute findings. Normal chest. Dictated by: Dictated on workstation # [id number] Dict: 10/08/1847 Trans: 10/08/18947 Interpreted by: ANICETO LOVELL Electronically signed by: ANICETO LOVELL 10/08/18947 Departure Impression Primary Impression: Urinary tract infection Qualified Codes: N30.00 - Acute cystitis without hematuria Additional Impressions: Infection associated with nephrostomy catheter Qualified Codes: T83.512A - Infection and inflammatory reaction due to nephrostomy catheter, initial encounter High-risk in third trimester Disposition: 02 XFER SHT-TRM HOSP Condition: Stable Transfer Transfer Time: 11:18 Transfer Facility: [place], [place], Dr. Barnes exceptadrian Method of Transfer: EMS Departure-Patient Inst. Referrals: NO,LOCAL PHYSICIAN (PCP/Family) Primary Care Physician KASSANDRA SOLIZ MD Oct 08, 2018 08:42
[2018-10-08] MEDS ORDERED: NS IV 1000 ML 1,000 ML IV ONE ×2 (08:43→12:44)
[2018-10-08] MEDS ORDERED: ACETAMINOPHEN 500 MG TAB (TYLENOL) PO STA (08:43)
[2018-10-08] MEDS ORDERED: cefTRIAXone FOR IV USE 1,000 MG in WATER (STERILE) FOR INJECTION 10 ML IV ONE (08:45)
--- NOTE | 2018-10-08 09:00 | NUR ---
ob here doing monitoring on pt at this time.
[2018-10-08 09:12] VITALS: BP 113/69
--- NOTE | 2018-10-08 09:50 | Diagnostic Imaging Report ---
INDICATION: Chest pain COMPARISON: 06/15/2018 FINDINGS: Single view the chest demonstrates clear lungs bilaterally. The heart size is normal. There is no pneumothorax. Osseous structures are normal. IMPRESSION: No acute findings. Normal chest. Dictated by: Dictated on workstation # [id number]
[2018-10-08] MEDS ORDERED: BETAMETHASONE ACE/NA PHOS 6 MG/ML (CELESTONE SOLUSPAN) IM SCH (11:30)
--- NOTE | 2018-10-08 11:51 | NUR ---
parag contacted at this time requesting transfer.
[2018-10-08 12:59] VITALS: BP 118/76
--- NOTE | 2018-10-10 14:00 | NUR ---
IFEANYI IN [place] WILL FAX TO [facility]
== END 2018-10-08 12:59 | disposition short-term general hospital (02) ==
LOC: EDUNIT# 06:31 → ER 06:35
DX: O23.43 Unspecified infection of urinary tract in pregnancy, third trimester (principal); T83.512A Infection and inflammatory reaction due to nephrostomy catheter, initial encounter; Z3A.32 32 weeks gestation of pregnancy; Z90.49 Acquired absence of other specified parts of digestive tract; Z90.89 Acquired absence of other organs; Z87.442 Personal history of urinary calculi
CPT/HCPCS: 36415; 71045; 80053; 81000; 83605; 85025; 85610; 85730; 87040; 87077; 87088; 87186; 93005; 96361; 96372; 96374; 96375

== ENCOUNTER 2018-11-27 09:20 | Emergency (ER) | payer MEDICAID ==
[~2018-11-27] VITALS: Ht 155 cm; Wt 76.0 kg
[~2018-11-27 09:20] MED LIST changes: +NITR-65 PO
--- NOTE | 2018-11-27 09:38 | ED GU-Female ---
General Chief Complaint: Abdominal/GI Problems Stated Complaint: NEPHROSTOMY TUBE ISSUES Source: patient, family (dad) Exam Limitations: no limitations History of Present Illness Date Seen by Provider: Nov 27, 2018 Time Seen by Provider: 09:25 Initial Comments The patient resents to ER by private conveyance from home with her father and chief complaint she thinks she may have displaced her nephrostomy tube. It was placed in [facility] secondary to kidney stones during her . Been draining fine until last night when she said she was getting out of the car and she thinks she may have pulled it on something because she started having some more pain in her back and usual. Right now she's having 0 out of 10 pain no fevers chills. Still producing urine without hematuria grossly. She is a at 39 weeks 0 days based on an EDC of 12/04/18. She follows with Dr. Cabral, locally Dr. Fernandes. Allergies and Home Medications Allergies Coded Allergies: No Known Drug Allergies (Unverified , 06/09/13) Home Medications Nitrofurantoin Monohyd/M-Cryst 100 Mg Capsule, 1 TAB PO DAILY, (Reported) Patient Home Medication List Home Medication List Reviewed: Yes Review of Systems Review of Systems Constitutional: No chills, No diaphoresis, No fever EENTM: No ear discharge, No ear pain Respiratory: No cough, No short of breath Cardiovascular: No chest pain, No edema Gastrointestinal: No abdominal pain, No constipation, No diarrhea, No nausea Genitourinary: denies discharge, denies dysuria Musculoskeletal: No back pain, No joint pain Past Lpiwyqb-Xxbkju-Ibbwhz Hx Patient Social History Alcohol Use: Denies Use Recreational Drug Use: No Smoking Status: Never a Smoker 2nd Hand Smoke Exposure: No Recent Foreign Travel: No Contact w/Someone Who Travel: No Recent Hopitalizations: No Physical Abuse: No Sexual Abuse: No Mistreated: No Fear: No Seasonal Allergies Seasonal Allergies: No Past Medical History Surgeries: Yes (, NEPHROSTOMY TUBE PLACEMENT) Appendectomy, Renal, Tonsillectomy Respiratory: No Cardiac: No Neurological: No Reproductive Disorders: No Sexually Transmitted Disease: No Genitourinary: Yes (nephrostomy tube) Kidney Infection, Bladder Infection, Kidney Stones Gastrointestinal: No Musculoskeletal: No Endocrine: No HEENT: No Cancer: No Psychosocial: No Integumentary: No Blood Disorders: No Family Medical History No Pertinent Family Hx Physical Exam Vital Signs Vital Signs - First Documented 11/27/18 09:28 Temp 98.1 Pulse 90 Resp 20 B/P (MAP) 113/78 Pulse Ox 96 Capillary Refill : Height, Weight, BMI Height: 5'0" Weight: 159lbs. 0oz. 72.327396xm; 21.63 BMI Method:Stated General Appearance: WD/WN, no apparent distress HEENT: PERRL/EOMI, pharynx normal Neck: full range of motion, normal inspection Cardiovascular: normal peripheral pulses, regular rate, rhythm Respiratory: no respiratory distress, no accessory muscle use Gastrointestinal: normal bowel sounds, non tender, soft Skin: normal color, warm/dry, other (nephrostomy site is still sutured down and appears to be clean, dry and without discharge no erythema or induration..) Progress/Results/Core Measures Suspected Sepsis SIRS Temperature: Pulse: Respiratory Rate: Laboratory Tests 11/27/18 09:39: White Blood Count 9.0 Blood Pressure / Mean: Laboratory Tests 11/27/18 09:39: Creatinine 0.62, Platelet Count 257, Total Bilirubin 0.5 Results/Orders Lab Results Laboratory Tests Test 11/27/18 09:39 11/27/18 09:43 11/27/18 10:35 Range/Units White Blood Count 9.0 4.3-11.0 10^3/uL Red Blood Count 4.52 4.35-5.85 10^6/uL Hemoglobin 12.1 11.5-16.0 G/DL Hematocrit 36 35-52 % Mean Corpuscular Volume 79 L 80-99 FL Mean Corpuscular Hemoglobin 27 25-34 PG Mean Corpuscular Hemoglobin Concent 34 32-36 G/DL Red Cell Distribution Width 14.4 10.0-14.5 % Platelet Count 257 130-400 10^3/uL Mean Platelet Volume 11.1 H 7.4-10.4 FL Neutrophils (%) (Auto) 71 42-75 % Lymphocytes (%) (Auto) 21 12-44 % Monocytes (%) (Auto) 8 0-12 % Eosinophils (%) (Auto) 0 0-10 % Basophils (%) (Auto) 0 0-10 % Neutrophils # (Auto) 6.4 1.8-7.8 X 10^3 Lymphocytes # (Auto) 1.9 1.0-4.0 X 10^3 Monocytes # (Auto) 0.7 0.0-1.0 X 10^3 Eosinophils # (Auto) 0.0 0.0-0.3 10^3/uL Basophils # (Auto) 0.0 0.0-0.1 10^3/uL Sodium Level 136 135-145 MMOL/L Potassium Level 4.2 3.6-5.0 MMOL/L Chloride Level 109 H 98-107 MMOL/L Carbon Dioxide Level 17 L 21-32 MMOL/L Anion Gap 10 5-14 MMOL/L Blood Urea Nitrogen 9 7-18 MG/DL Creatinine 0.62 0.60-1.30 MG/DL Estimat Glomerular Filtration Rate > 60 BUN/Creatinine Ratio 15 Glucose Level 77 70-105 MG/DL Calcium Level 9.2 8.5-10.1 MG/DL Corrected Calcium 9.8 8.5-10.1 MG/DL Total Bilirubin 0.5 0.1-1.0 MG/DL Aspartate Amino Transf (AST/SGOT) 15 5-34 U/L Alanine Aminotransferase (ALT/SGPT) 13 0-55 U/L Alkaline Phosphatase 273 H 40-136 U/L Total Protein 6.9 6.4-8.2 GM/DL Albumin 3.3 3.2-4.5 GM/DL Urine Color YELLOW YELLOW Urine Clarity CLEAR CLEAR Urine pH 9 9 5-9 Urine Specific [place] 1.015 L 1.015 L 1.016-1.022 Urine Protein 3+ H 3+ H NEGATIVE Urine Glucose (UA) NEGATIVE NEGATIVE NEGATIVE Urine Ketones NEGATIVE NEGATIVE NEGATIVE Urine Nitrite POSITIVE H NEGATIVE NEGATIVE Urine Bilirubin NEGATIVE NEGATIVE NEGATIVE Urine Urobilinogen NORMAL NORMAL NORMAL MG/DL Urine Leukocyte Esterase 3+ H 3+ H NEGATIVE Urine RBC (Auto) 3+ H 4+ H NEGATIVE Urine RBC RARE 10-25 H /HPF Urine WBC 2-5 25-50 H /HPF Urine Crystals PRESENT H PRESENT H /LPF Urine Triple Phosphate Crystals MODERATE H FEW H /LPF Urine Bacteria LARGE H MODERATE H /HPF Urine Casts NONE NONE /LPF Urine Mucus NEGATIVE NEGATIVE /LPF Urine Culture Indicated NO YES My Orders Orders - DAVID GARCIA Ua Culture If Indicated (11/27/18 09:32) Cbc With Automated Diff (11/27/18 09:32) Comprehensive Metabolic Panel (11/27/18 09:32) Ed Iv/Invasive Line Start (11/27/18 09:32) Ua Culture If Indicated (11/27/18 10:35) Urine Culture (11/27/18 10:35) Vital Signs/I&O 11/27/18 09:28 Temp 98.1 Pulse 90 Resp 20 B/P (MAP) 113/78 Pulse Ox 96 Capillary Refill : Progress Note #1: Time: 09:38 Progress Note Patient is in no acute distress. Urinalysis and basic labs. Progress Note #2: Time: 12:09 Progress Note Nursing reports the stopcock was clogged and after he was flushed out we were able to get a urine sample from the nephrostomy tube and send that down. This sample also appears to be infected so we'll have her stop the Macrobid and do Omnicef for 7 days and keep her follow-up appointment with urology. Geovanni 1 time. Consults Consults : Consulting Physician: BELKIS FERNANDES MD Consults Notes Discussed the case with Dr. Fernandes, her urologist and he recommends there is 3 options. We can irrigated seizure flushes easily. We did obtain a nephrostogram and we can just watch and wait since she's not having any symptoms. She has an appointment on the and he wants her to keep that appointment. He also noted in his previous clinic notes that the stones were all retrieved and the nephrostomy tube was just left and in case further stones occluded her. His suggestion would be for her to go ahead and complete her and then follow up outpatient. Departure Impression Primary Impression: Nephrostomy complication Additional Impressions: Qualified Codes: Z3A.39 - 39 weeks gestation of History of extraction of renal calculus UTI (urinary tract infection) Qualified Codes: T83.512A - Infection and inflammatory reaction due to nephrostomy catheter, initial encounter; N39.0 - Urinary tract infection, site not specified Disposition: 01 HOME, SELF-CARE Condition: Stable Departure-Patient Inst. Decision time for Depature: 12:10 Referrals: NO,LOCAL PHYSICIAN (PCP) Primary Care Physician ARETHA MIMS ELIAS A MD Patient Instructions: How to Care for Your Nephrostomy Tube, Kidney Infection (DC) Add. 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 Drink plenty of fluids. Keep your follow-up appointment with urology. Return to the ER. Having worsening symptoms, pain, nausea vomiting, fever etc. All discharge instructions reviewed with patient and/or family. Voiced understanding. Scripts Cefdinir (Cefdinir) 300 Mg Capsule 300 MG PO BID for 7 Days, #14 CAP 0 Refills Prov: DAVID GARCIA 11/27/18 DAVID GARCIA Nov 27, 2018 09:38
[2018-11-27 09:56] LABS: BASOPHILS % (AUTO) 0 % (0-10); EOSINOPHILS % (AUTO) 0 % (0-10); HEMATOCRIT 36 % (35-52); HEMOGLOBIN 12.1 G/DL (11.5-16.0); LYMPHOCYTES # (AUTO) 1.9 X 10^3 (1.0-4.0); LYMPHOCYTES % (AUTO) 21 % (12-44); MEAN CORPUSCULAR HEMOGLOBIN 27 PG (25-34); MEAN CORPUSCULAR HGB CONC 34 G/DL (32-36); MEAN CORPUSCULAR VOLUME 79 FL (80-99); MEAN PLATELET VOLUME 11.1 FL (7.4-10.4); MONOCYTES # (AUTO) 0.7 X 10^3 (0.0-1.0); MONOCYTES % (AUTO) 8 % (0-12); NEUTROPHILS # (AUTO) 6.4 X 10^3 (1.8-7.8); NEUTROPHILS % (AUTO) 71 % (42-75); PLATELET COUNT 257 10^3/uL (130-400); RED CELL DISTRIBUTION WIDTH 14.4 % (10.0-14.5)
[2018-11-27 09:57] LABS: BILIRUBIN,URINE NEGATIVE (NEGATIVE); CLARITY,URINE CLEAR; COLOR,URINE YELLOW; GLUCOSE, URINE (UA) NEGATIVE (NEGATIVE); KETONES,URINE NEGATIVE (NEGATIVE); LEUKOCYTE ESTERASE ,URINE 3+ (NEGATIVE); NITRITE,URINE POSITIVE (NEGATIVE); PH,URINE 9 (5-9); PROTEIN,URINE 3+ (NEGATIVE); UROBILINOGEN,URINE NORMAL (NORMAL)
[2018-11-27 10:10] LABS: BACTERIA,URINE LARGE /HPF; RBC,URINE RARE /HPF; TRIPLE PHOSPHATE CRYSTAL,UR MODERATE /LPF
[2018-11-27 10:14] LABS: ALANINE AMINOTRANSFERASE 13 U/L (0-55); ALBUMIN 3.3 GM/DL (3.2-4.5); ALKALINE PHOSPHATASE 273 U/L (40-136); BILIRUBIN,TOTAL 0.5 MG/DL (0.1-1.0); BUN/CREATININE RATIO 15; CALCIUM 9.2 MG/DL (8.5-10.1); CARBON DIOXIDE 17 MMOL/L (21-32); CHLORIDE 109 MMOL/L (98-107); CREATININE SERUM 0.62 MG/DL (0.60-1.30); GFR ESTIMATED > 60; GLUCOSE 77 MG/DL (70-105); POTASSIUM 4.2 MMOL/L (3.6-5.0); SODIUM 136 MMOL/L (135-145); TOTAL PROTEIN 6.9 GM/DL (6.4-8.2)
[2018-11-27 11:51] LABS: BILIRUBIN,URINE NEGATIVE (NEGATIVE); CLARITY,URINE CLEAR; COLOR,URINE YELLOW; GLUCOSE, URINE (UA) NEGATIVE (NEGATIVE); KETONES,URINE NEGATIVE (NEGATIVE); LEUKOCYTE ESTERASE ,URINE 3+ (NEGATIVE); NITRITE,URINE NEGATIVE (NEGATIVE); PH,URINE 9 (5-9); PROTEIN,URINE 3+ (NEGATIVE); UROBILINOGEN,URINE NORMAL (NORMAL)
[2018-11-27 11:52] LABS: BACTERIA,URINE MODERATE /HPF; TRIPLE PHOSPHATE CRYSTAL,UR FEW /LPF; WBC,URINE 25-50 /HPF
[2018-11-27] MEDS ORDERED: CEFD300C3 PO (12:11)
[2018-11-27] MEDS ORDERED: cefTRIAXone FOR IV USE 1,000 MG in WATER (STERILE) FOR INJECTION 10 ML IV ONE (12:15)
[2018-11-27 12:27] VITALS: BP 120/69
== END 2018-11-27 12:26 | disposition home or self-care (01) ==
LOC: EDUNIT# 09:20 → ER 09:21
DX: O99.89 Other specified diseases and conditions complicating pregnancy, childbirth and the puerperium (principal); N99.522 Malfunction of incontinent external stoma of urinary tract; O23.43 Unspecified infection of urinary tract in pregnancy, third trimester; Z3A.39 39 weeks gestation of pregnancy; Z90.49 Acquired absence of other specified parts of digestive tract; Z90.89 Acquired absence of other organs; Z87.442 Personal history of urinary calculi
CPT/HCPCS: 36415; 80053; 81000; 85025; 87077; 87088; 87186

== ENCOUNTER 2018-12-03 19:54 | Inpatient (IN) | payer MEDICAID ==
[~2018-12-03] VITALS: Ht 154 cm; Wt 82.0 kg
[~2018-12-03 19:54] MED LIST changes: +CEFD300C3 PO
[2018-12-03] MEDS ORDERED: LACTATED RINGERS 500 ML IV SCH (20:09)
[2018-12-03] MEDS ORDERED: NIFEdipine 10 MG CAPS (WOMEN'S SERVICES ONLY!!!) PO ONE (20:15)
[2018-12-03 20:20] VITALS: BP 119/81
[2018-12-03] MEDS: D5 LR IV SOLUTION 1,000 ML IV SCH (20:46)
[2018-12-03 20:55] LABS: BASOPHILS % (AUTO) 0 % (0-10); EOSINOPHILS # (AUTO) 0.1 10^3/uL (0.0-0.3); EOSINOPHILS % (AUTO) 1 % (0-10); HEMATOCRIT 34 % (35-52); HEMOGLOBIN 11.7 G/DL (11.5-16.0); LYMPHOCYTES # (AUTO) 2.8 X 10^3 (1.0-4.0); LYMPHOCYTES % (AUTO) 24 % (12-44); MEAN CORPUSCULAR HEMOGLOBIN 27 PG (25-34); MEAN CORPUSCULAR HGB CONC 34 G/DL (32-36); MEAN CORPUSCULAR VOLUME 78 FL (80-99); MEAN PLATELET VOLUME 11.3 FL (7.4-10.4); MONOCYTES # (AUTO) 1.1 X 10^3 (0.0-1.0); MONOCYTES % (AUTO) 10 % (0-12); NEUTROPHILS # (AUTO) 7.7 X 10^3 (1.8-7.8); NEUTROPHILS % (AUTO) 66 % (42-75); PLATELET COUNT 274 10^3/uL (130-400); RED CELL DISTRIBUTION WIDTH 14.9 % (10.0-14.5); WHITE BLOOD COUNT 11.6 10^3/uL (4.3-11.0)
[2018-12-03] MEDS ORDERED: MISOPROSTOL 100 MCG (CYTOTEC) TAB ONE (20:57)
[2018-12-03 22:00] VITALS: BP 109/68
[2018-12-03 22:30] VITALS: BP 108/73
[2018-12-03] MEDS ORDERED: DOCO200C4 PO (23:01)
[2018-12-03 23:30] VITALS: BP 126/81
[2018-12-04] VITALS (71 sets, daily range): BP systolic 93–141; BP diastolic 55–91
[2018-12-04] MEDS ORDERED: MISOPROSTOL 100 MCG (CYTOTEC) TAB PV SCH
[2018-12-04] MEDS ORDERED: NIFEdipine 10 MG CAPS (WOMEN'S SERVICES ONLY!!!) PO SCH (00:15)
[2018-12-04] MEDS ORDERED: OXYTOCIN/NORMAL SALINE 500 ML IV ONE (03:13)
[2018-12-04] MEDS ORDERED: SUFENTA 0.6MCG/ML BUPIVA 0.125 100 ML ONE (03:13)
[2018-12-04] MEDS ORDERED: OXYTOCIN/NORMAL SALINE 500 ML IV SCH ×2 (03:32→12:34)
[2018-12-04] MEDS ORDERED: LACTATED RINGERS 1,000 ML IV ONE ×2 (03:35→06:04)
[2018-12-04] MEDS: D5 LR IV SOLUTION 1,000 ML IV SCH ×2 (04:19→09:18)
[2018-12-04] MEDS ORDERED: fentaNYL INJECTION 100 MCG/2 ML AMP ONE (05:06)
[2018-12-04] MEDS ORDERED: NALOXONE 0.4 MG/ML 1 ML (NARCAN) VIAL IV PRN ×2 (06:15)
[2018-12-04] MEDS ORDERED: EPIDURAL (SUFENTA 0.6MCG/ML BUPIVA 0.125%) 100 ML BAG EPI PRN (06:15)
[2018-12-04] MEDS ORDERED: METOCLOPRAMIDE INJ 10 MG/2 ML (REGLAN) IV PRN (06:15)
[2018-12-04] MEDS ORDERED: ONDANSETRON 4 MG/2 ML (SDV) Z0FRAN IV PRN (06:15)
[2018-12-04] MEDS ORDERED: diphenhydrAMINE 50 MG/ML INJ (BENADRYL) IV PRN (06:15)
--- NOTE | 2018-12-04 07:12 | History & Physical-OB ---
OB - Chief Complaint & HPI Date/Time Date of Admission: Date of Admission: Dec 03, 2018 at 19:54 Date seen by a Provider: Dec 04, 2018 Time Seen by a Provider: 06:50 Chief Complaint/History OB-Reason for Admission/Chief: Induction of Labor Hx : 1 Hx Para: 0 Expected Date of Delivery: Dec 04, 2018 Gestational Age in Weeks: 39 Gestational Age in Days: 6 Indication for induction: other Other reason for admission: Ms. Raghu Frazier has a Nephrostomy Tube in place for Severe case of Pyelonephritis Admission Nurse Assessment Rev: Yes Allergies and Home Medications Allergies Coded Allergies: No Known Drug Allergies (Unverified , 06/09/13) Home Medications Cefdinir 300 Mg Capsule, 300 MG PO BID Prescribed by: DAVID GARCIA on 11/27/18 1211 Patient Home Medication List Home Medication List Reviewed: Yes OB - History Hx of Present Care: Yes Ultrasounds: Normal mid trimester US Obstetrical Complications: Other (Nephrostomy tube stemming from severe case of pyelonephritis) Information Induced Hypertension: No Maternal Gestational Diabetes: No Hemorrhage: No Obstetrical History Hx : 1 Hx Para: 0 Hx Termination: No Hx Multiple Gestation: No Hx Ectopic : No Hx Stillbirth: No Hx Complication: No Hx Induced Hypertens: No Hx Maternal Gestational Diabet: No Hx Hemorrhage: No Delivery History Hx Blood Disorders: No Adverse Rxn to Tranfusion: No Patient Past Medical History Noncontributory Social History/Family History Recent Infectious Disease Expo: No Sexually Transmitted Disease: No Alcohol Use: Denies Use Recreational Drug Use: No 2nd Hand Smoke Exposure: No OB - Admission Exam Physical Exam Vitals: Vital Signs 12/04/18 12/04/18 04:00 05:50 Temp 36.3 Pulse 71 Resp 18 B/P (MAP) 128/75 Pulse Ox 100 O2 Delivery Room Air HEENT: NCAT Heart: Rhythm Normal Lungs: Clear Abdomen: Gravid Extremities: Normal Reflexes: Normal Cervical Dilatation: 2cm Effacement: 75% Station: -3 Membranes: Intact Heart Rate: 130's Accelerations: Accelerations Present Decelerations: No Decelerations Short Term Variability: Present Care Home Variability: Average (6-25) Contractions on Admission: >10 Minutes Apart Intensity: Mild Hernandez Scoring Tool (Modified) Dilation (cm): 1-2cm (1) Effacement (%): 51-79% (2) Descent/Station: -2 (1) Cervix Consistency: Medium(1) Cervix Position: Middle/Mid-Position (1) Subtract 1 point for: Nulliparity (-1) Labs Laboratory Tests Test 12/03/18 20:35 Range/Units White Blood Count 11.6 H 4.3-11.0 10^3/uL Red Blood Count 4.35 4.35-5.85 10^6/uL Hemoglobin 11.7 11.5-16.0 G/DL Hematocrit 34 L 35-52 % Mean Corpuscular Volume 78 L 80-99 FL Mean Corpuscular Hemoglobin 27 25-34 PG Mean Corpuscular Hemoglobin Concent 34 32-36 G/DL Red Cell Distribution Width 14.9 H 10.0-14.5 % Platelet Count 274 130-400 10^3/uL Mean Platelet Volume 11.3 H 7.4-10.4 FL Neutrophils (%) (Auto) 66 42-75 % Lymphocytes (%) (Auto) 24 12-44 % Monocytes (%) (Auto) 10 0-12 % Eosinophils (%) (Auto) 1 0-10 % Basophils (%) (Auto) 0 0-10 % Neutrophils # (Auto) 7.7 1.8-7.8 X 10^3 Lymphocytes # (Auto) 2.8 1.0-4.0 X 10^3 Monocytes # (Auto) 1.1 H 0.0-1.0 X 10^3 Eosinophils # (Auto) 0.1 0.0-0.3 10^3/uL Basophils # (Auto) 0.0 0.0-0.1 10^3/uL OB - Assessment/Plan/Diagnosis Assessment Assessment: induction of labor Admission Dx Intrauterine at 40 weeks Admission Status: Inpatient Order (span 2 midnights) Reason for Inpatient Admission: Intrauterine at 40 weeks Plan Plan: Induction (Cytotec cervical ripening followed by Pitocin Induction of Labor) ARETHA MIMS DO Dec 04, 2018 07:12
[2018-12-04] MEDS ORDERED: LIDOCAINE PF 2% 5 ML (XYLOCAINE) VIAL ONE (07:20)
--- NOTE | 2018-12-04 08:30 | NUR ---
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 Procedure explained, consent reviewed and signed by anesthesia. Questions answered to patient's satisfaction. Time out taken to verify correct patient/procedure. 0805 Patient up to side of bed, assisted into sitting position. 0809 Betadine prep done x3 and sterile drape applied. 0811 Local done, see anesthesia record. 0814 Test dose given, see anesthesia record for drug and dosage. Epidural catheter secured in place. Epidural placement complete. 0822 Assisted back into bed, monitors adjusted. Epidural dosed, see anesthesia record. 0821 Epidural of Sufenta/Bupvicaine @ 10cc/hr stated per pump. Patient tolerated procedure well.
[2018-12-04] MEDS ORDERED: MINERAL OIL CONCENTRATE 99.9% 15 ML UDC ONE (08:31)
[2018-12-04] MEDS ORDERED: LIDOCAINE 1% INJ 20 ML 20 ML VIAL ONE (10:29)
[2018-12-04] MEDS ORDERED: WITCH HAZEL(TUCKS) 40 EA JAR ONE (12:25)
[2018-12-04] MEDS ORDERED: BENZOCAINE/MENTHOL (DERMOPLAST) 56 ML CAN TP ONE (12:25)
--- NOTE | 2018-12-04 12:34 | OB Labor & Delivery Record ---
Vag Delivery Note Vag Delivery Note Date of Delivery: 12/04/18 Preoperative Diagnosis: Yvonne Frazier is a (23 /Para 1 / 0, Gestational Age (wks)39with [] Postoperative Diagnosis: Same Surgeon: ARETHA MIMS Substance Abuse Technician: [None] Anesthesia: [Epidural] Delivery Type: [Normal Spontaneous Vaginal Delivery with Midline Episiotom and Third Degree Extension and Repair] Findings: [] Viable [Male] , apgars [8, 9], weight [7 lb, 12 ounces] Lacerations: Midline Episiotomy with Third Degree Extension and Repair Intact placenta with 3 vessel cord. No nuchal cord, body cord or shoulder dystocia Cytotec 800 mcg placed for hemorrhage prophylaxis Estimated Blood Loss: [300] ml Complications: None Condition: Stable Description of Procedure: The patient is a 23 year old female who presented [for Cytotec Cervical Ripeni ng, followed by Pitocin Induction of Labor]. She was admitted and informed consent was obtained. Her labor course was unremarkable] She progressed to complete dilatation and began to push. She was then set up for delivery. The infant's head was delivered atraumatically in the [MATTHEW] position. The shoulders and remainder of the 's body were then delivered without difficulty. Upon delivery, the head was held below the level of the perineum and the mouth and nares were bulb suctioned. The cord was doubly clamped and cut and the infant was handed off to the pediatric staff. Cord blood was obtained. An intact placenta with 3-vessel cord delivered via Everardo and there was found to be minimal bleeding.~ Vigorous fundal massage was performed and the fundus was found to be firm. IV oxytocin was given. Examination of the vagina and perineum revealed a [third degree extension of the episiotomy] laceration repaired in the usual fashion with 2-0 and 3-0 vicryl suture. Following the repair, sponge, instrument and needle counts were correct. Mom and baby were both in stable condition in the labor suite. Vitals - Labs Vital Signs - I&O Vital Signs Date Time Temp Pulse Resp B/P (MAP) Pulse Ox O2 Delivery O2 Flow Rate FiO2 12/04/18 07:30 36.6 73 18 139/91 Room Air 12/04/18 07:10 72 18 139/85 Room Air 12/04/18 06:55 62 18 127/81 100 Room Air 12/04/18 06:40 65 18 115/77 100 Room Air 12/04/18 06:25 76 18 124/84 100 Room Air 12/04/18 06:05 69 18 127/71 100 Room Air 12/04/18 06:00 82 18 127/78 100 Room Air 12/04/18 05:50 71 18 128/75 100 Room Air 12/04/18 05:45 66 18 115/76 100 Room Air 12/04/18 05:40 64 18 114/76 100 Room Air 12/04/18 05:35 61 18 116/71 100 Room Air 12/04/18 05:30 65 18 119/75 100 Room Air 12/04/18 05:25 64 18 123/63 100 Room Air 12/04/18 05:20 78 18 125/70 100 Room Air 12/04/18 05:15 69 18 132/73 100 Room Air 12/04/18 05:10 85 18 123/73 100 Room Air 12/04/18 05:05 74 18 114/74 100 Room Air 12/04/18 05:00 83 18 118/71 100 Room Air 12/04/18 04:50 88 18 120/86 100 Room Air 12/04/18 04:45 82 18 130/89 100 Room Air 12/04/18 04:30 56 18 122/75 Room Air 12/04/18 04:15 56 18 133/82 Room Air 12/04/18 04:00 36.3 61 18 111/74 Room Air 12/04/18 03:30 72 18 107/79 Room Air 12/04/18 02:30 68 18 103/59 Room Air 12/04/18 01:30 65 18 126/81 Room Air 12/04/18 00:30 36.3 62 18 108/68 Room Air 12/03/18 23:30 65 18 126/81 Room Air 12/03/18 22:30 70 18 108/73 Room Air 12/03/18 22:00 67 18 109/68 Room Air 12/03/18 20:20 36.0 85 18 119/81 Labs Laboratory Tests 12/03/18 20:35: White Blood Count 11.6H, Red Blood Count 4.35, Hemoglobin 11.7, Hematocrit 34L, Mean Corpuscular Volume 78L, Mean Corpuscular Hemoglobin 27, Mean Corpuscular Hemoglobin Concent 34, Red Cell Distribution Width 14.9H, Platelet Count 274, Mean Platelet Volume 11.3H, Neutrophils (%) (Auto) 66, Lymphocytes (%) (Auto) 24, Monocytes (%) (Auto) 10, Eosinophils (%) (Auto) 1, Basophils (%) (Auto) 0, Neutrophils # (Auto) 7.7, Lymphocytes # (Auto) 2.8, Monocytes # (Auto) 1.1H, Eosinophils # (Auto) 0.1, Basophils # (Auto) 0.0 ARETHA IMMS DO Dec 04, 2018 12:34
[2018-12-04] MEDS ORDERED: DIBUCAINE (NUPERCAINAL) 1% OINT 30 GM TOP PRN (12:45)
[2018-12-04] MEDS ORDERED: MEASLES,MUMPS,RUBELLA 1 EA INJ SQ ONE (12:45)
[2018-12-04] MEDS ORDERED: BENZOCAINE/MENTHOL (DERMOPLAST) 56 ML CAN TP PRN (12:45)
[2018-12-04] MEDS ORDERED: TETANUS,DIPTH,PERTUSS P/F (BOOSTRIX) 0.5 ML VIAL IM ONE (12:45)
--- NOTE | 2018-12-04 13:25 | NUR ---
PERICARE WITH PAD/UNDERWEAR CHANGE. FF U/1. VAG FLOW LT/MOD RUBRA. CONTINUES TO CARE FOR IN ROOM. ATE A REGULAR DIET ORDERED BY S.O. MOTHER REMAINS AT BEDSIDE.
[2018-12-04] MEDS: WITCH HAZEL(TUCKS) 40 EA JAR TOP PRN (13:28)
[2018-12-04] MEDS: IBUPROFEN 800 MG (MOTRIN) TAB PO SCH ×2 (13:36→21:03)
[2018-12-04] MEDS ORDERED: CATHETER FLUSH 10 ML SYR IV SCH (14:00)
--- NOTE | 2018-12-04 15:05 | NUR ---
IV INFILTRATED. D/C'ED WITH TIP INTACT. SITE MILDLY SWOLLEN.
--- NOTE | 2018-12-04 15:55 | NUR ---
UP TO THE BATHROOM WITH ASSISTANCE. ABLE TO BEAR WEIGHT WELL. VOIDED WITHOUT PROBLEMS. PERICARE PERFORMED WITH DERMAPLAST, TUCKS, AND NUPERCAINAL APPLIED. GOWN CHANGE. PREPARING TO GO TO PP ROOM.
--- NOTE | 2018-12-04 16:10 | NUR ---
TRANSFERRED TO ROOM 312 VIA W/C IN STABLE CONDITION ACC BY THIS RN WITH PT'S MOTHER PUSHING CRIB WITH AND ANOTHER FEMALE FAMILY MEMBER BRINGING BELONGINGS. ASSISTED TO BED ORIENTED TO SURROUNDINGS, CALL LIGHT OPERATION, ROOM SERVICE PROCEDURE, BED CONTROLS, AND INFORMATION PAPERS. FF U/1. VAG FLOW LT RUBRA. DENIES ANY PAIN.
--- NOTE | 2018-12-04 17:30 | NUR ---
CONTINUES TO CARE FOR IN ROOM. TRYING TO GET AWAKE TO FEED. SUGGESTED CHANGING THE DIAPER TO SEE IF WILL AWAKEN. DENIES NEED TO VOID AT THIS TIME.
[2018-12-04] MEDS: ACETAMINOPHEN 500 MG TAB (TYLENOL) PO SCH (17:45)
--- NOTE | 2018-12-04 18:00 | NUR ---
NURSERY RN IN TO ASSIST WITH FEEDING.
--- NOTE | 2018-12-04 18:45 | NUR ---
DENIES URGE TO VOID. FF U/1. VAG FLOW LT RUBRA. CONTINUES TO CARE FOR IN ROOM. VISITORS AT BEDSIDE.
[2018-12-04] MEDS: DOCUSATE SODIUM 100 MG (COLACE) CAP PO SCH (21:03)
[2018-12-05 00:05] VITALS: BP 109/63
[2018-12-05] MEDS: ACETAMINOPHEN 500 MG TAB (TYLENOL) PO SCH ×3 (01:56→18:36)
[2018-12-05 04:25] VITALS: BP 97/59
[2018-12-05 05:54] LABS: BASOPHILS % (AUTO) 0 % (0-10); EOSINOPHILS # (AUTO) 0.1 10^3/uL (0.0-0.3); EOSINOPHILS % (AUTO) 1 % (0-10); HEMATOCRIT 32 % (35-52); HEMOGLOBIN 10.3 G/DL (11.5-16.0); LYMPHOCYTES # (AUTO) 2.8 X 10^3 (1.0-4.0); LYMPHOCYTES % (AUTO) 22 % (12-44); MEAN CORPUSCULAR HEMOGLOBIN 26 PG (25-34); MEAN CORPUSCULAR HGB CONC 33 G/DL (32-36); MEAN CORPUSCULAR VOLUME 81 FL (80-99); MONOCYTES # (AUTO) 0.8 X 10^3 (0.0-1.0); MONOCYTES % (AUTO) 6 % (0-12); NEUTROPHILS # (AUTO) 8.7 X 10^3 (1.8-7.8); NEUTROPHILS % (AUTO) 71 % (42-75); PLATELET COUNT 235 10^3/uL (130-400); RED CELL DISTRIBUTION WIDTH 14.8 % (10.0-14.5); WHITE BLOOD COUNT 12.3 10^3/uL (4.3-11.0)
--- NOTE | 2018-12-05 06:41 | Anesthesia-Regional Post-Op ---
Regional Patient Condition Mental Status: Alert, Oriented x3 Circulation: Same as Pre-Op Headache: Absent Sensation: Full Recovery Motor Block: Absent Post Op Complications Complications None Follow Up Care/Instructions Patient Instructions None needed. Anesthesia/Patient Condition Patient is doing well, no complaints, stable vital signs, no apparent adverse anesthesia problems. No complications reported per nursing. NIALL LOPEZ CRNA Dec 05, 2018 06:41
[2018-12-05] MEDS ORDERED: PRENATAL VITAMIN 1 EA TAB PO SCH (07:00)
[2018-12-05] MEDS ORDERED: OXYC1TAB87 PO (07:15)
[2018-12-05] MEDS ORDERED: IBUP-1780 PO (07:15)
[2018-12-05] MEDS ORDERED: DOCU-143 PO (07:15)
--- NOTE | 2018-12-05 08:00 | NUR ---
CARING FOR INFANT IN ROOM. FAMILY AT BEDSIDE.
[2018-12-05 09:00] VITALS: BP 102/57
--- NOTE | 2018-12-05 09:30 | NUR ---
ASSESSMENT COMPLETED. VSS. PREPARING TO TAKE A SHOWER.
[2018-12-05] MEDS: DOCUSATE SODIUM 100 MG (COLACE) CAP PO SCH (09:56)
[2018-12-05] MEDS ORDERED: TETANUS,DIPTH,PERTUSS P/F (BOOSTRIX) 0.5 ML VIAL IM ONE (11:15)
[2018-12-05] MEDS: IBUPROFEN 800 MG (MOTRIN) TAB PO SCH (12:00)
[2018-12-05] MEDS: WITCH HAZEL(TUCKS) 40 EA JAR TOP PRN (12:00)
--- NOTE | 2018-12-05 12:00 | NUR ---
DOING WELL. OFFERS NO COMPLAINTS. TO ROOM TO ASSIST WITH NEEDED.
[2018-12-05 14:00] VITALS: BP 110/59
--- NOTE | 2018-12-05 14:00 | NUR ---
VSS. DOING WELL.
--- NOTE | 2018-12-05 16:00 | NUR ---
FAMILY AT BEDSIDE. REMAINS IN ROOM.
[2018-12-05] MEDS ORDERED: LIDOCAINE 1% INJ 20 ML 20 ML VIAL INJ ONE (17:00)
--- NOTE | 2018-12-05 17:15 | NUR ---
PT TEARFUL WHEN ENTERED ROOM. STATES SHE WANTS MARIZOL TO COME SEE HER REGARDING PAINFUL NIPPLES. EXPLAINED THAT MARIZOL IS GONE BU T NURSERY RN WILL COME VISIT WITH HER.
--- NOTE | 2018-12-05 17:30 | NUR ---
NURSERY RN ASSISTED WITH LATCH ON AND PT STATES LESS PAINFUL.
--- NOTE | 2018-12-05 18:30 | NUR ---
PLAN TO GO TO ROOMING IN R/T NEEDING TO STAY. FAMILY AT BEDSIDE. RXS TAKEN TO BE FILLED BY S.O.
--- NOTE | 2018-12-05 19:45 | NUR ---
Pt. w/assist from her mother, will come back to do D/C instructions. Pt. denies pain or needs.
[2018-12-05 21:25] VITALS: BP 107/72
--- NOTE | 2018-12-05 21:25 | NUR ---
D/C instructions given & explained, including f/u appt, & info on being boarder status/rooming in, pt. verbalized understanding & signed, copy of D/C instructions to pt. Pt. has her Rx, picked up by family. Pt. D/C'd to room in w/ still admitted.
--- NOTE | 2018-12-08 07:17 | Discharge Summary ---
Diagnosis/Chief Complaint Date of Admission Dec 03, 2018 at 19:54 Date of Discharge Dec 05, 2018 at 21:25 Discharge Date: Dec 05, 2018 Admission Diagnosis Admission Diagnosis Intrauterine at 40 weeks gestation Discharge Diagnosis Intrauterine at 40 weeks gestation Reason Hospital Visit Ms. Raghu Frazier has a Nephrostomy Tube in place for Severe case of Pyelonephritis Discharge Summary Hospital Course Was the Problem List Reviewed?: Yes Hospital Course Ms. Raghu Frazier was admitted for Cytotec Cervical Ripening followed by full Pitocin Induction of Labor. She received an Epidural for antepartum pain management. I artificially rupture her membranes. She progressed to complete. After a short course of pushing, delivered a healthy viable . The remainder of her hospitalization was unremarkable. Her vital signs remained stable. She will be discharge to home with instructions, prescriptions, and a follow up appointment. Procedures None. Discharge Physical Examination Allergies: Coded Allergies: No Known Drug Allergies (Unverified , 06/09/13) Vitals & I&Os Vital Signs Date Time Temp Pulse Resp B/P (MAP) Pulse Ox O2 Delivery O2 Flow Rate FiO2 12/05/18 21:25 36.7 64 18 107/72 (84) 97 Room Air General Appearance: Alert, Oriented X3, Cooperative HEENT: Atraumatic Respiratory: Clear to Auscultation, Normal Air Movement Cardiovascular: Regular Rate, No Murmurs Abdominal: Normal Bowel Sounds Extremities: No Clubbing, No Cyanosis Skin: No Rashes Neuro: Normal Gait, Normal Speech Psych/Mental Status: Mental Status NL Discharge Home Medications Reviewed and agree with Discharge Medication list on patient's Discharge Instruction sheet Instructions to Patient/Family Please see electronic discharge instructions given to patient. Clinical Quality Measures DVT/VTE Risk/Contraindication: Risk Factor Score Per Nursin RFS Level Per Nursing on Admit: 1=Low/No VTE PPX ARETHA MIMS DO Dec 08, 2018 07:17
== END 2018-12-05 21:25 | disposition home or self-care (01) | DRG 768 ==
LOC: LDRP 19:54
PROVIDERS: ADMIT Obstetrics & Gynecology; ATTEND Obstetrics & Gynecology
PROC: 3E0P7GC Introduction of Other Therapeutic Substance into Female Reproductive, Via Natural or Artificial Opening (ICD-10-PCS; 2018-12-03)
PROC: 10E0XZZ Delivery of Products of Conception, External Approach (ICD-10-PCS; principal; 2018-12-04)
PROC: 0DQR0ZZ Repair Anal Sphincter, Open Approach (ICD-10-PCS; 2018-12-04)
PROC: 0W8NXZZ Division of Female Perineum, External Approach (ICD-10-PCS; 2018-12-04)
PROC: 3E033VJ Introduction of Other Hormone into Peripheral Vein, Percutaneous Approach (ICD-10-PCS; 2018-12-04)
DX: O23.03 Infections of kidney in pregnancy, third trimester (principal); N12 Tubulo-interstitial nephritis, not specified as acute or chronic; O70.20 Third degree perineal laceration during delivery, unspecified; Z3A.39 39 weeks gestation of pregnancy; Z37.0 Single live birth; Z23 Encounter for immunization; Z93.6 Other artificial openings of urinary tract status
CPT/HCPCS: 36415; 85025; 86850; 86900; 86901; 90715

== ENCOUNTER → 2018-12-13 | Outpatient (CLI) | payer MEDICAID ==
[~2018-12-13] MED LIST changes: +DOCO200C4 PO; +DOCU-143 PO; +IBUP-1780 PO; +OXYC1TAB87 PO
--- NOTE | 2018-12-13 10:58 | Diagnostic Imaging Report ---
PROCEDURE: CT abdomen and pelvis without contrast. TECHNIQUE: Multiple contiguous axial images were obtained through the abdomen and pelvis without the use of intravenous contrast. Auto Exposure Controls were utilized during the CT exam to meet ALARA standards for radiation dose reduction. INDICATION: Kidney stones. Patient has percutaneous nephrostomy tube. FINDINGS: The lung bases are clear. Liver and gallbladder are unremarkable. No biliary duct dilatation is seen. The pancreas and spleen are unremarkable. No adrenal mass is identified. Right kidney does contain a 3 mm nonobstructing cactus in the lower pole. Tiny 1 mm nonobstructing calculus in the midportion of the right kidney is also seen. Left knee contains a percutaneous nephrostomy tube. There appears to be a tiny approximately 1 mm calculus in the proximal left ureter. Distal left ureter is unremarkable. No bladder calculi are seen. The uterus is post-gravid. Aorta is non-aneurysmal. The small and large bowel loops are normal in caliber. There is no ascites. IMPRESSION: 1. Nonobstructing right-sided nephrolithiasis. 2. Left-sided percutaneous nephrostomy tube. There is a tiny approximately 1 mm calculus in the proximal left ureter. No other significant abnormality is seen. Dictated by: Dictated on workstation # [id number]
== END ==
LOC: RAD 10:06
PROVIDERS: ATTEND Urology
DX: N20.0 Calculus of kidney (principal); Z96.0 Presence of urogenital implants
CPT/HCPCS: 74176

== ENCOUNTER → 2018-12-15 | Outpatient (CLI) | payer MEDICAID ==
--- NOTE | 2018-12-15 16:30 | Diagnostic Imaging Report ---
INDICATION: Left-sided indwelling percutaneous nephrostomy tube. Patient presents to the Department for nephrostomy tube removal. PROCEDURE: Patient was brought to the fluoroscopy suite and placed on the table in the prone position. Preliminary radiograph of the abdomen was obtained which demonstrated a left-sided percutaneous nephrostomy tube. The tube was divided with scissors in order to unlock the locking mechanism. The tube was then removed. A dressing was applied. Followup radiograph demonstrates complete removal of the pertaining nephrostomy tube. A total of 8 seconds of fluoroscopic time was utilized. IMPRESSION: Left nephrostomy tube removal, as described. Dictated on workstation # [id number]
== END ==
LOC: RAD 11:25
PROVIDERS: ATTEND Urology
DX: Z43.6 Encounter for attention to other artificial openings of urinary tract (principal); N20.0 Calculus of kidney
CPT/HCPCS: 50389

== ENCOUNTER 2019-05-10 16:15 | Outpatient (RCR) | payer MEDICAID ==
[2019-04-11 15:34] LABS: BUN/CREATININE RATIO 20; CALCIUM 9.9 MG/DL (8.5-10.1); CARBON DIOXIDE 21 MMOL/L (21-32); CHLORIDE 106 MMOL/L (98-107); CREATININE SERUM 0.85 MG/DL (0.60-1.30); GFR ESTIMATED > 60; GLUCOSE 97 MG/DL (70-105); PHOSPHORUS 3.7 MG/DL (2.3-4.7); POTASSIUM 3.7 MMOL/L (3.6-5.0); SODIUM 138 MMOL/L (135-145); URIC ACID 4.4 MG/DL (2.6-7.2)
== END 2019-08-08 | disposition home or self-care (01) ==
LOC: LAB 16:15 → EDSTATUS 16:15
PROVIDERS: ATTEND Urology
DX: N20.0 Calculus of kidney (principal)
CPT/HCPCS: 36415; 80048; 82140; 82340; 82507; 82570; 83735; 83945; 83970; 83986; 84100; 84105; 84133; 84300; 84392; 84550; 84560